=== PATIENT | female | born 1970 | race Hispanic/Latino ===

== ENCOUNTER 2018-12-27 00:58 | Emergency (ER) | payer SELFPAY ==
--- OUTSIDE RECORDS SUMMARY | 2018-12-27 01:01 | XMS REPORT | Continuity of Care Document ---
:1970 Author Organization Interface Problems Problem Status Onset Classification Date Comments Source Date Reported Mastodynia 01/30/2018 [facility] 8 [facility] N64.4 - Active [facility] MASTODYNIA 8 [employer] PAIN ABDOMINAL Active [facility] (LIVER) PAIN 2 Medical RIGHT SIDE AND Center RUNS TO THE Medications Medication Details Route Status Patient Ordering Order Source Instructions Provider Date Toradol 10 mg 10 mg, 1 tab, PO Active [facility] oral tablet PO, Q4H, PRN, Alexx 012 Medical 60 tab, Pain, Center Substitution Allowed, TAB ketorolac 15 mg, Route: IVP No [place] [facility] IVP, Drug Longer Alexx 012 Medical form: INJ, Active Center ONCE, Dosing Weight 78.182, kg, Priority: STAT, Start date: 07/29/12 15:08:00, Stop date: 07/29/12 15:08:00 hydromorphone 1 mg, 0.5 mL, IV No [facility] Route: IV, Longer Alexx 012 Medical Drug form: Active Center INJ, ONCE, Dosing Weight 78.182, kg, Start date: 07/29/12 14:29:00, Stop date: 07/29/12 14:29:00 Zofran 4 mg, 2 mL, IVP No [facility] Route: IVP, Longer Alexx 012 Medical Drug form: Active Center INJ, ONCE, Dosing Weight 78.182, kg, Priority: STAT, Start date: 07/29/12 14:28:00, Stop date: 07/29/12 14:28:00 omeprazole Substitution Active [address] Center Allergies, Adverse Reactions, Alerts Substance Category Reaction Severity Reaction Status Date Comments Source type Reported morphine drug Allergy Active [facility] allergy [facility] Immunizations Immunization Date Given Site Status Last Updated Comments Source Results Order Name Results Value Reference Date Interpretation Comments Source Range Breast Breast Mammo 12/18 - [facility] Mammo Scrn Scrn LUCY - [employer] LUCY w redd redd incl incl CAD MA CAD MA Read by: Nisha Topete MD Dictated Date/time: 12/19/18 14:25 BILATERAL DIGITAL SCREENING MAMMOGRAM 3D/2D WITH CAD: 12/18/2018 Electronically Signed by: Nisha Topete MD 12/19/18 14 :25 FINAL REPORT CLINICAL: /Z12.31 Encounter For Screening Mammogram For Malignant Neoplasm Of Breast. Current study was evaluated with a Computer Aided Detection (CAD) system. COMPARISON:Comparison is made to exams dated: 10/24/2017 mammogram and 02/04 mammogram - [facility]. TECHNIQUE: Digital Breast Tomosynthesis was performed and utilized for Interpretation. Current study was also evaluated with a Computer Aided Detection (CAD) system. FINDINGS: The tissue of both breasts is heterogeneously dense, which could obscure detection of small masses. Bilateral subglandular breast implants are stable and intact. There are benign calcifications in both breasts. There also is a biopsy clip in the right breast. No significant masses, calcifications, or other findings are seen in either breast. There has been no significant interval change. IMPRESSION: BENIGN RECOMMENDATION: There is no mammographic evidence of malignancy. A 1 year screening mammogram is recommended.(12/19/2019) This exam was interpreted at [id number] for [facility]. Nisha Topete M.D. dh/:12/19/2018 14:25:42 Dialer(s): Anayeli Jeffers, [facility] Imaging letter sent: BI-RADS 1/2 Dense Mammogram BI-RADS: 2 Benign Breast Breast 10/24 - [facility] Complete Complete - [employer] Lucy US US Read by: Casimiro Dean MD Dictated Date/time: 10/24/17 14:58 Electronically Signed by: Casimiro Dean MD 10/24/17 14:58 FINAL REPORT COMPLETE ULTRASOUND OF BOTH BREASTS AND AXILLA: 10/24/2017 CLINICAL: /Breast Pain /N64.4 Mastodynia. COMPARISON:Comparison is made to exams dated: 02/04/2014 mammogram and 06/25 mammogram - [facility]. TECHNIQUE: Current study was also evaluated with a Computer Aided Detection (CAD) system. Color flow and real-time ultrasound of both breasts four quadrants, retroareolar, and axilla regions were performed. FINDINGS: No significant abnormalities were seen sonographically in either breast or either axilla. There are mild fibrocystic changes noted in each breast. There is no solid mass. IMPRESSION: NEGATIVE RECOMMENDATION:There is no sonographic evidence of malignancy and no significant interval change. A 1 year screening mammogram is recommended.(10/25/2018) This exam was interpreted at [id number] for [facility]. Casimiro Dean M.D. bf/:10/24/2017 14:58:32 Dialer(s): Cass Noel R.D.M.S, [facility]; Trish Ortiz, [facility] Imaging letter sent: BI-RADS 1/2 Ultrasound BI-RADS: 1 Negative Breast Breast Mammo 10/24 - [facility] Mammo Diag Diag LUCY /2017 - [place] LUCY incl incl CAD MA CAD MA Read by: Casimiro Dean MD Dictated Date/time: 10/24/17 14:58 Electronically Signed by: Casimiro Dean MD 10/24/17 14:58 FINAL REPORT BILATERAL DIGITAL DIAGNOSTIC MAMMOGRAM WITH CAD: 10/24/2017 CLINICAL: /Breast Pain /N64.4 Mastodynia. Current study was evaluated with a Computer Aided Detection (CAD) system. COMPARISON:Comparison is made to exams dated: 02/04/2014 mammogram and 06/25 mammogram - [facility]. TECHNIQUE: Mammographic views were obtained using digital acquisition. Current study was also evaluated with a Computer Aided Detection (CAD) system. FINDINGS: The tissue of both breasts is heterogeneously dense, which could obscure detection of small masses. Bilateral implants appear stable. There are benign calcifications in both breasts. There also is a biopsy clip in both breasts. No significant masses, calcifications, or other findings are seen in either breast. IMPRESSION: BENIGN RECOMMENDATION:There is no mammographic evidence of malignancy. A 1 year screening mammogram is recommended.(10/25/2018) This exam was interpreted at [id number] for [facility]. Casimiro Dean M.D. bf/:10/24/2017 14:58:32 Dialer(s): Cass Noel R.D.M.S, [facility]; Trish Ortiz, [facility] Imaging letter sent: BI-RADS 1/2 Mammogram BI-RADS: 2 Benign CHEMISTRY AGAP 11.0 meq/L 10.0 - 10 Normal [facility] 20.0 [facility] CHEMISTRY eGFR 70 07/29 NA 1Result Comment: The eGFR is calculated using the CKD-EPI formula. In most young, healthy individuals the eGFR will be > 90 mL/min/1.73m2. The eGFR declines with age. An eGFR of 60-89 may be normal in [facility] mL/min/1.7 some populations, particularly the elderly, for whom the CKD-EPI formula has not been extensively validated. Use of the eGFR is not recommended in the following populations: [place] [address] Center Individuals with unstable creatinine concentrations, including patients and those with serious co-morbid conditions. Patients with extremes in muscle mass or diet. The data above are obtained from the National Kidney Disease Education Program (NKDEP) which additionally recommends that when the eGFR is used in patients with extremes of body mass index for purposes of drug dosing, the eGFR should be multiplied by the estimated BMI. CHEMISTRY Potassium 4.0 meq/L 3.5 - 5.1 07/29 Normal [facility] CHEMISTRY Chloride Lvl 106 meq/L 95 - 109 07/29 Normal [facility] CHEMISTRY CO2 30 meq/L 24 - 32 07/29 Normal [facility] CHEMISTRY Calcium Lvl 9.7 mg/dL 8.5 - 10.5 07/29 Normal [facility] CHEMISTRY Glucose Lvl 81 mg/dL 70 - 99 07/29 Normal 2Interpretive Data: Adult reference range values reflect the clinical guidelines of the [place] [employer]. [facility] CHEMISTRY BUN 8 mg/dL 7 - 22 07/29 Normal [facility] CHEMISTRY Creatinine 1.0 mg/dL 0.5 - 1.4 07/29 Normal [facility] CHEMISTRY Sodium Lvl 143 meq/L 135 - 145 07/29 Normal [facility] CHEMISTRY AST 23 unit/L 0 - 37 07/29 Normal [facility] CHEMISTRY Bili Direct 0.1 mg/dL 0.0 - 0.3 07/29 Normal [facility] CHEMISTRY Bili Total 0.4 mg/dL 0.2 - 1.3 07/29 Normal [facility] CHEMISTRY ALT 52 unit/L 0 - 65 07/29 Normal [facility] CHEMISTRY Albumin Lvl 4.3 g/dL 3.5 - 5.0 07/29 Normal [facility] Center CHEMISTRY Total 8.2 g/dL 6.4 - 8.4 07/29 Normal [facility] CHEMISTRY Alk Phos 98 unit/L 39 - 136 07/29 Normal [facility] CHEMISTRY A/G Ratio 1.1 0.7 - 1.6 07/29 Normal [facility] CHEMISTRY Bili 0.3 mg/dL 0.0 - 1.0 07/29 Normal [facility] CHEMISTRY Globulin 3.9 g/dL 2.0 - 4.0 07/29 Normal [facility] CHEMISTRY Lipase Lvl 140 unit/L 73 - 393 07/29 Normal [facility] HEMATOLOGY RDW 13.2 % 11.5 - 07/29 Normal [facility] 14.5 [facility] HEMATOLOGY Platelet 263 K/CMM 133 - 450 07/29 Normal [facility] HEMATOLOGY MPV 9.0 fL 7.4 - 10.4 07/29 Normal [facility] HEMATOLOGY MCH 30.1 pg 27.0 - 07/29 [facility] 31.0 Medical [facility] HEMATOLOGY MCHC 34.1 g/dL 32.0 - 07/29 Normal [facility] 36.0 Medical [facility] HEMATOLOGY MCV 88.2 fL 81.0 - 07/29 Normal [facility] 99.0 Medical [facility] HEMATOLOGY RBC 4.56 M/CMM 4.20 - 07/29 Normal [facility] 5.40 Medical [facility] HEMATOLOGY Hgb 13.7 g/dL 12.0 - 07/29 Normal [facility] 16.0 Medical Center HEMATOLOGY Hct 40.2 % 36.0 - 07/29 Normal [facility] 48.0 Medical Center HEMATOLOGY WBC 8.1 K/CMM 3.7 - 10.4 07/29 Normal [facility] HEMATOLOGY Anisocyte 1+ None Seen 07/29 ABN Medical *ABN* [facility] (07/29/2012 14:43:00) HEMATOLOGY Plt Morph Normal 07/29 Normal [facility] (07/29/2012 14:43:00) Center HEMATOLOGY Basophils # 0.1 K/CMM 0.0 - 0.2 07/29 Normal [facility] HEMATOLOGY Segs-Bands # 4.1 K/CMM 1.5 - 8.1 07/29 Normal [facility] HEMATOLOGY Eosinophils 0.1 K/CMM 0.0 - 0.5 07/29 Normal [facility] HEMATOLOGY Monocytes # 0.7 K/CMM 0.0 - 0.8 07/29 Normal [facility] HEMATOLOGY Lymphocytes 3.1 K/CMM 1.0 - 5.5 07/29 Normal [facility] HEMATOLOGY Basophils 0.8 % 0.0 - 1.0 07/29 Normal [facility] HEMATOLOGY Monocytes 8.1 % 2.0 - 12.0 07/29 Normal [facility] HEMATOLOGY Eosinophils 1.5 % 0.0 - 4.0 07/29 Normal [facility] HEMATOLOGY Lymphocytes 38.7 % 20.0 - 07/29 Normal [facility] 40.0 [facility] HEMATOLOGY Segs 50.9 % 45.0 - 07/29 Normal [facility] 75.0 [facility] CHEMISTRY U Preg Negative Negative 07/29 Normal [facility] (07/29/2012 14:29:00) Center URINALYSIS UA Bili Negative Negative 07/29 NA [facility] *NA* [facility] (07/29/2012 14:29:00) URINALYSIS UA Blood Negative Negative 07/29 Normal [facility] (07/29/2012 14:29:00) Center URINALYSIS UA Nitrite Negative Negative 07/29 Normal [facility] (07/29/2012 14:29:00) Center URINALYSIS UA 0.2 EU/dL 0.1 - 1.0 07/29 Normal [facility] Urobilinogen [facility] URINALYSIS UA Leuk Est Negative Negative 07/29 Normal Medical (07/29/2012 14:29:00) Center URINALYSIS UA Spec Grav 1.015 <=1.030 07/29 Normal [facility] URINALYSIS UA pH 7.0 5.0 - 8.0 07/29 Normal [facility] URINALYSIS UA Color Yellow Yellow 07/29 NA Medical *NA* Center (07/29/2012 14:29:00) URINALYSIS UA Turbidity Clear Clear 07/29 Normal Medical (07/29/2012 14:29:00) Center URINALYSIS UA Ketones Negative Negative 07/29 NA Medical *NA* [facility] (07/29/2012 14:29:00) URINALYSIS UA Protein Negative Negative 07/29 Normal Medical (07/29/2012 14:29:00) Center URINALYSIS UA Glucose Negative Negative 07/29 Normal Medical (07/29/2012 14:29:00) Center URINALYSIS UA Renal Epi RARE 07/29 NA [facility] URINALYSIS UA Mucus Few /LPF None Seen 07/29 Normal Medical (07/29/2012 14:29:00) Center URINALYSIS UA WBC 3 /HPF 0 - 5 07/29 NA [facility] URINALYSIS UA Sq Epi Few /LPF Few 07/29 Normal Medical (07/29/2012 14:29:00) Center URINALYSIS UA RBC 0-2 /HPF 0 - 2 07/29 Normal Medical (07/29/2012 14:29:00) Center URINALYSIS UA Bacteria Occasional /HPF None Seen 07/29 Normal Medical (07/29/2012 14:29:00) Center Vital Signs Vital Sign Value Date Comments Source Weight 78.182 07/29/2012 [facility] Height 165.10 cm 07/29/2012 [facility] Encounters Location Location Encounter Encounter Reason Attending ADM DC Status Source Details Type Number For Provider Date Date Visit [facility] Emergency [id number] CEE ANGELITA 07/29 07/29 Active [facility] /2011 [facility] Outpt Diag [id number] Joan 10/24 10/25 [facility] Outpatient Services Bharat /2017 [facility] Outpt Diag [id number] Tootie 12/18 12/19 [facility] Outpatient Services [facility] Procedures Procedure Code Date Perfomer Comments Source
--- OUTSIDE RECORDS SUMMARY | 2018-12-27 01:02 | XMS REPORT | Summary of Care ---
:1970 Author Organization [facility] Outpatient [facility] Address [address] [place] [address]- Encounter HQ Encntr_daniela(FIN) [id number] Date(s): 12/18/18 - 12/18/18 [facility] Outpatient [facility] [address] [facility] [address] [place] [phone] Discharge Disposition: Home or Self Care Attending Physician: Tootie Blandon MD Referring Physician: Tootie Blandon MD Vital Signs No data available for this section Problem List No data available for this section Allergies, Adverse Reactions, Alerts Substance Reaction Severity Status morphine Active Medications No data available for this section Results No data available for this section Immunizations No data available for this section Procedures No data available for this section Social History Social History Type Response Assessment and Plan No data available for this section
--- OUTSIDE RECORDS SUMMARY | 2018-12-27 01:02 | XMS REPORT | CCD ---
:1970 Author Organization [facility] Care Team Providers Name Role Phone MaikelCeleste smyth Consulting Provider Allergies, Adverse Reactions, Alerts Substance Reaction Status morphine Active Medications Medication Instructions Start Date End Date Status hydromorphone 1 mg, 0.5 mL, Route: IV, 07/29/2012 07/29/2012 Completed Drug form: INJ, ONCE, Dosing Weight 78.182, kg, Start date: 07/29/12 14:29:00, Stop date: 07/29/12 14:29:00 Zofran 4 mg, 2 mL, Route: IVP, 07/29/2012 07/29/2012 Completed Drug form: INJ, ONCE, Dosing Weight 78.182, kg, Priority: STAT, Start date: 07/29/12 14:28:00, Stop date: 07/29/12 14:28:00 Toradol 10 mg oral tablet 10 mg, 1 tab, PO, Q4H, PRN, 07/29/2012 Ordered 60 tab, Pain, Substitution Allowed, TAB ketorolac 15 mg, Route: IVP, Drug 07/29/2012 07/29/2012 Completed form: INJ, ONCE, Dosing Weight 78.182, kg, Priority: STAT, Start date: 07/29/12 15:08:00, Stop date: 07/29/12 15:08:00 omeprazole Substitution Allowed 07/29/2012 Ordered Vital Signs Most recent to oldest [Reference Range]: 1 Height 165.10 cm (07/29/2012 10:15:00) Weight 78.182 kg (07/29/2012 10:15:00) Results URINALYSIS Most recent to oldest [Reference Range]: 1 UA Turbidity [Clear] Clear (07/29/2012 14:29:00) UA Color [Yellow] Yellow *NA* (07/29/2012 14:29:00) UA pH [5.0-8.0] 7.0 (07/29/2012:29:00) UA Spec Grav [<=1.030] 1.015 (07/29/2012:29:00) UA Glucose [Negative] Negative (07/29/2012:29:) UA Blood [Negative] Negative (07/29/2012:29:00) UA Ketones [Negative] Negative *NA* (07/29/2012:29:00) UA Protein [Negative] Negative (07/29/2012::) UA Urobilinogen [0.1-1.0 EU/dL] 0.2 EU/dL (07/29/2012:29:00) UA Bili [Negative] Negative *NA* (07/29/2012::) UA Leuk Est [Negative] Negative (07/29/2012:29:) UA Nitrite [Negative] Negative (07/29/2012:29:00) UA WBC [0-5 /HPF] 3 /HPF *NA* (07/29/2012:29:00) UA RBC [0-2 /HPF] 0-2 /HPF (07/29/2012:29:00) UA Bacteria [None Seen /HPF] Occasional /HPF (07/29/2012:29:00) UA Sq Epi [Few /LPF] Few /LPF (07/29/2012:29:00) UA Renal Epi RARE *NA* (07/29/2012:29:00) UA Mucus [None Seen /LPF] Few /LPF (07/29/2012:29:00) CHEMISTRY Most recent to oldest [Reference Range]: 1 Sodium Lvl [135-145 mEq/L] 143 mEq/L (07/29/2012 14:43:00) Potassium Lvl [3.5-5.1 mEq/L] 4.0 mEq/L (07/29/2012:43:00) Chloride Lvl [95-109 mEq/L] 106 mEq/L (07/29/2012:43:00) CO2 [24-32 mEq/L] 30 mEq/L (07/29/2012:43:00) AGAP [10.0-20.0 mEq/L] 11.0 mEq/L (07/29/2012 14:43:00) Creatinine Lvl [0.5-1.4 mg/dL] 1.0 mg/dL (07/29/2012 14:43:00) eGFR 70 mL/min/1.73m2 1 *NA* (07/29/2012 14:43:00) BUN [7-22 mg/dL] 8 mg/dL (07/29/2012 14:43:00) Glucose Lvl [70-99 mg/dL] 81 mg/dL 2 (07/29/2012 14:43:00) Total Protein [6.4-8.4 g/dL] 8.2 g/dL (07/29/2012:43:00) Albumin Lvl [3.5-5.0 g/dL] 4.3 g/dL (07/29/2012:43:00) Globulin [2.0-4.0 g/dL] 3.9 g/dL (07/29/2012:43:00) A/G Ratio [0.7-1.6] 1.1 (07/29/2012:43:00) Calcium Lvl [8.5-10.5 mg/dL] 9.7 mg/dL (07/29/2012 14:43:00) ALT [0-65 unit/L] 52 unit/L (07/29/2012:43:00) AST [0-37 unit/L] 23 unit/L (07/29/2012 14:43:00) Alk Phos [39-136 unit/L] 98 unit/L (07/29/2012:43:00) Bili Total [0.2-1.3 mg/dL] 0.4 mg/dL (07/29/2012 14:43:00) Bili Direct [0.0-0.3 mg/dL] 0.1 mg/dL (07/29/2012 14:43:00) Bili Indirect [0.0-1.0 mg/dL] 0.3 mg/dL (07/29/2012 14:43:00) Lipase Lvl [73-393 unit/L] 140 unit/L (07/29/2012 14:43:00) U Preg [Negative] Negative (07/29/2012 14:29:00) 1Result Comment: The eGFR is calculated using the CKD-EPI formula. In most young , healthy individualsthe eGFR will be >90 mL/min/1.73m2. The eGFR declines with age. An eGFR of 60-89 may be normal in some populations, particularly the elderly, for whom the CKD-EPI formula has not been extensively validated. Use of the eGFR is not recommended in the following populations: Individuals with unstable creatinine concentrations, including patients and those with serious co-morbid conditions. Patients with extremes in muscle mass or diet. The data above are obtained from the National Kidney Disease Education Program ( NKDEP) which additionally recommends that when the eGFR is used in patients with extremes of body mass index for purposesof drug dosing, the eGFR should be multiplied by the estimated BMI.2Interpretive Data: Adult reference range values reflect the clinical guidelines of the [place] [employer].HEMATOLOGY Most recent to oldest [Reference Range]: 1 WBC [3.7-10.4 K/CMM] 8.1 K/CMM (07/29/2012:43:) RBC [4.20-5.40 M/CMM] 4.56 M/CMM (07/29/2012:43:) Hgb [12.0-16.0 g/dL] 13.7 g/dL (07/29/2012::) Hct [36.0-48.0 %] 40.2 % (07/29/2012:43:) MCV [81.0-99.0 fL] 88.2 fL (07/29/2012:43:) MCH [27.0-31.0 pg] 30.1 pg (07/29/2012:43:) MCHC [32.0-36.0 g/dL] 34.1 g/dL (07/29/2012:43:) RDW [11.5-14.5 %] 13.2 % (07/29/2012::) Platelet [133-450 K/CMM] 263 K/CMM (07/29/2012:43:00) MPV [7.4-10.4 fL] 9.0 fL (07/29/2012:43:) Segs [45.0-75.0 %] 50.9 % (07/29/2012 14:43:00) Lymphocytes [20.0-40.0 %] 38.7 % (07/29/2012 14:43:00) Monocytes [2.0-12.0 %] 8.1 % (07/29/2012 14:43:00) Eosinophils [0.0-4.0 %] 1.5 % (07/29/2012 14:43:00) Basophils [0.0-1.0 %] 0.8 % (07/29/2012 14:43:00) Segs-Bands # [1.5-8.1 K/CMM] 4.1 K/CMM (07/29/2012 14:43:00) Lymphocytes # [1.0-5.5 K/CMM] 3.1 K/CMM (07/29/2012 14:43:00) Monocytes # [0.0-0.8 K/CMM] 0.7 K/CMM (07/29/2012 14:43:00) Eosinophils # [0.0-0.5 K/CMM] 0.1 K/CMM (07/29/2012 14:43:00) Basophils # [0.0-0.2 K/CMM] 0.1 K/CMM (07/29/2012 14:43:00) Anisocyte [None Seen] 1+ *ABN* (07/29/2012 14:43:00) Plt Morph Normal (07/29/2012 14:43:00)
--- OUTSIDE RECORDS SUMMARY | 2018-12-27 01:02 | XMS REPORT | Summary of Care ---
:1970 Author Organization [facility] Outpatient [facility] Address [address] [place] [address]- Encounter HQ Encntr_alias(FIN) [id number] Date(s): 10/24/17 - 10/24/17 [facility] [address] [facility] [address] [place] [phone] Encounter Diagnosis Mastodynia (Final) - 10/29/17 Discharge Disposition: Home or Self Care Attending Physician: Joan Nicholson MD Vital Signs No data available for [...]
--- OUTSIDE RECORDS SUMMARY | 2018-12-27 01:02 | XMS REPORT | Summary of Care ---
:1970 Author Organization [facility] Outpatient [facility] Address [address] [facility] [address] [place] [address]- Encounter HQ Encntr_alias(FIN) [id number] Date(s): 10/24/17 - 10/24/17 [facility] [address] [facility] [address] [place], [place] [phone] Discharge Disposition: Home or Self Care Attending [...]
[2018-12-27 02:22] LABS: Absolute Lymphocytes (CBC) 3.8 K/uL (0.7-4.9); Absolute Monocytes 0.8 K/uL (0.1-1.3); Absolute Neutrophil 4.1 K/uL (1.8-8.0); Basophils % 0.4 % (0-1.3); Eosinophils % 3.3 % (0-4.4); Hematocrit 41.1 % (36.0-45.0); Lymphocytes % 41.9 % (15.3-44.8); MPV 9.7 fL (7.6-11.3); Monocytes % 9.1 % (3.3-12.3); RBC Red Blood Cell Count 4.53 M/uL (3.86-4.86)
--- NOTE | 2018-12-27 02:40 | EDPHYS ---
Physician Documentation [facility] Name: Kim Zimmerman Age: 48 yrs Sex: Female : 1970 Arrival Date: 12/27/2018 Time: 01:09 Bed 14 Private MD: ED Physician Joao Moseley HPI: 12/27 01:24 This 48 yrs old Female presents to ER via Ambulatory with complaints of High kb Potassium. 01:24 Pt reports she had chest, neck and arm pain on Sunday. Saw Dr Melo for symptoms on kb Sunday, had negative EKG and blood test done. 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 Onset: The symptoms/episode began/occurred 3 day(s) ago. The patient has not experienced similar symptoms in the past. The patient has been recently seen by a physician: the patient's primary care provider, Dr. Melo at a clinic, 2 day(s) ago. 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 - Social history:: Smoking status: Patient/guardian denies using tobacco, Patient uses alcohol, occasionally. Patient/guardian denies using street drugs. - Ebola Screening: : Patient negative for fever greater than or equal to 101.5 degrees Fahrenheit, and additional compatible Ebola Virus Disease symptoms Patient denies exposure to infectious person Patient denies travel to an Ebola-affected area in the 21 days before illness onset. ROS: 01:23 Constitutional: Negative for fever, chills, and weight loss, ENT: Negative for injury, kb pain, and discharge, Cardiovascular: Negative for chest pain, palpitations, and edema, Respiratory: Negative for shortness of breath, cough, wheezing, and pleuritic chest pain, Abdomen/GI: Negative for abdominal pain, nausea, vomiting, diarrhea, and constipation, MS/Extremity: Negative for injury and deformity, Skin: Negative for injury, rash, and discoloration, Neuro: Negative for headache, weakness, numbness, tingling, and seizure. :23 Neck: Positive for pain at rest. Exam: :23 Constitutional: This is a well developed, well nourished patient who is awake, alert, kb and in no acute distress. Head/Face: Normocephalic, atraumatic. ENT: Nares patent. No nasal discharge, no septal abnormalities noted. Tympanic membranes are normal and external auditory canals are clear. Oropharynx with no redness, swelling, or masses, exudates, or evidence of obstruction, uvula midline. Mucous membranes moist. Neck: Trachea midline, no thyromegaly or masses palpated, and no cervical lymphadenopathy. Supple, full range of motion without nuchal rigidity, or vertebral point tenderness. No Meningismus. Chest/axilla: Normal chest wall appearance and motion. Nontender with no deformity. No lesions are appreciated. Cardiovascular: Regular rate and rhythm with a normal S1 and S2. No gallops, murmurs, or rubs. Normal PMI, no JVD. No pulse deficits. Respiratory: Lungs have equal breath sounds bilaterally, clear to auscultation and percussion. No rales, rhonchi or wheezes noted. No increased work of breathing, no retractions or nasal flaring. Abdomen/GI: Soft, non-tender, with normal bowel sounds. No distension or tympany. No guarding or rebound. No evidence of tenderness throughout. Skin: Warm, dry with normal turgor. Normal color with no rashes, no lesions, and no evidence of cellulitis. MS/ Extremity: Pulses equal, no cyanosis. Neurovascular intact. Full, normal range of motion. Neuro: Awake and alert, GCS 15, oriented to person, place, time, and situation. Cranial nerves II-XII grossly intact. Motor strength 5/5 in all extremities. Sensory grossly intact. Cerebellar exam normal. Normal gait. Vital Signs: 01:05 BP 129 / 85; Pulse 60; Resp 18; Temp 98.3(O); Pulse Ox 98% on R/A; Weight 81.65 kg (R); fc Height 5 ft. 6 in. (167.64 cm) (R); Pain 2/10; 02:17 BP 106 / 80; Pulse 59; Resp 15 S; Pulse Ox 97% on R/A; cc3 01:05 Body Mass Index 29.05 (81.65 kg, 167.64 cm) fc MDM: 01:18 Patient medically screened. kb 01:23 Data reviewed: vital signs, nurses notes. Data interpreted: Pulse oximetry: on room air kb is 98 %. Interpretation: normal. 02:39 Counseling: I had a detailed discussion with the patient and/or guardian regarding: the kb historical points, exam findings, and any diagnostic results supporting the discharge/admit diagnosis, lab results, the need for outpatient follow up, a family practitioner, to return to the emergency department if symptoms worsen or persist or if there are any questions or concerns that arise at home. 02:40 ED course: Potassium 4.0, normal. Pt educated to follow up with PCP . kb 12/27 01:14 Order name: CBC with Diff; Complete Time: 02:36 kb 12/27 01:14 Order name: Basic Metabolic Panel; Complete Time: 02:36 kb 12/27 01:14 Order name: EKG; Complete Time: 01:15 kb 12/27 01:14 Order name: EKG - Nurse/Tech; Complete Time: 01:56 kb 12/27 01:15 Order name: IV Start; Complete Time: 01:56 kb Administered Medications: No medications were administered Disposition: 12/27/18 02:39 Discharged to Home. Impression: Person with feared health complaint in whom no diagnosis is made. - Condition is Stable. - Medication Reconciliation Form, Thank You Letter, Antibiotic Education, Prescription Opioid Use form. - Follow up: Emergency Department; When: As needed; Reason: Worsening of condition. Follow up: Private Physician; When: 2 - 3 days; Reason: Recheck today's complaints, Continuance of care, Re-evaluation by your physician. Addendum: 12/29/2018 19:39 Co-signature as Attending Physician, Joao Moseley MD. g s Signatures: Dispatcher [employer] EDKetty Durham FNP-C FNP-Ckb Chretien, Felicia, RN RN Joao Sorensen MD MD gs Cordel, Charlene cc3 Corrections: (The following items were deleted from the chart) 12/27 02:52 02:39 12/27/2018 02:39 Discharged to Home. Impression: Person with feared health cc3 complaint in whom no diagnosis is made. Condition is Stable. Forms are Medication Reconciliation Form, Thank You Letter, Antibiotic Education, Prescription Opioid Use. Follow up: Emergency Department; When: As needed; Reason: Worsening of condition. Follow up: Private Physician; When: 2 - 3 days; Reason: Recheck today's complaints, Continuance of care, Re-evaluation by your physician. kb
--- NOTE | 2018-12-27 02:40 | ER ---
Nurse's Notes [facility] Name: Kim Zimmerman Age: 48 yrs Sex: Female : 1970 Arrival Date: 12/27/2018 Time: 01:09 Bed 14 Private MD: Diagnosis: Person with feared health complaint in whom no diagnosis is made Presentation: 12/27 01:05 Presenting complaint: Patient states: that on Sunday she was having pain to her left fc chest, left neck and left arm along with some weakness. on she went to see Dr Melo and had some labs and an EKG done. He called her tonight to tell her that her Potassium was 7. She continues to have left neck pain. Transition of care: patient was not received from another setting of care. Onset of symptoms was December 22, 2018. Risk Assessment: Do you want to hurt yourself or someone else? Patient reports no desire to harm self or others. Initial Sepsis Screen: Does the patient meet any 2 criteria? No. Patient's initial sepsis screen is negative. Does the patient have a suspected source of infection? No. Patient's initial sepsis screen is negative. Care prior to arrival: None. 01:05 Method Of Arrival: Ambulatory 01:05 Acuity: EARLENE 3 Triage Assessment: 01:35 General: Appears in no apparent distress. comfortable, Behavior is calm, cooperative, cc3 appropriate for age. Pain: Denies pain. EENT: No signs and/or symptoms were reported regarding the EENT system. Neuro: Level of Consciousness is awake, alert, obeys commands, Oriented to person, place, time, situation, Appropriate for age. Cardiovascular: Patient's skin is warm and dry. Respiratory: Airway is patent Respiratory effort is even, unlabored, Respiratory pattern is regular, symmetrical. GI: Abdomen is round non-distended. : No signs and/or symptoms were reported regarding the genitourinary system. Derm: No signs and/or symptoms reported regarding the dermatologic system. Musculoskeletal: Circulation, motion, and sensation intact. Range of motion: intact in all extremities. 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 - Social history:: Smoking status: Patient/guardian denies using tobacco, Patient uses alcohol, occasionally. Patient/guardian denies using street drugs. - Ebola Screening: : Patient negative for fever greater than or equal to 101.5 degrees Fahrenheit, and additional compatible Ebola Virus Disease symptoms Patient denies exposure to infectious person Patient denies travel to an Ebola-affected area in the 21 days before illness onset. Screenin:10 Abuse screen: Denies threats or abuse. Nutritional screening: No deficits noted. Tuberculosis screening: No symptoms or risk factors identified. Fall Risk None identified. Assessment: 01:35 General: see triage assessment. cc3 02:45 Reassessment: Patient appears in no apparent distress at this time. Patient and/or cc3 family updated on plan of care and expected duration. Pain level reassessed. Patient is alert, oriented x 3, equal unlabored respirations, skin warm/dry/pink. WARNER Claudio discharged the patient home, no prescription given. IV cannula removed and patient left ER vitally stable and ambulatory. Patient denies pain at this time. Patient states feeling better. Vital Signs: 01:05 BP 129 / 85; Pulse 60; Resp 18; Temp 98.3(O); Pulse Ox 98% on R/A; Weight 81.65 kg (R); Height 5 ft. 6 in. (167.64 cm) (R); Pain 2/10; 02:17 BP 106 / 80; Pulse 59; Resp 15 S; Pulse Ox 97% on R/A; cc3 01:05 Body Mass Index 29.05 (81.65 kg, 167.64 cm) ED Course: 01:05 Arm band placed on Patient placed in an exam room, on a stretcher. fc 01:09 Patient arrived in ED. fc 01:10 Ketty Claudio FNP-C is [facility]. kb 01:10 oJao Moseley MD is Attending Physician. kb 01:10 Patient has correct armband on for positive identification. Bed in low position. Call light in reach. seamark advanced operator maintainer on. Pulse ox on. NIBP on. 01:10 No provider procedures requiring assistance completed. fc 01:22 Triage completed. fc 01:34 Corry Dee is Primary Nurse. cc3 01:50 Inserted saline lock: 20 gauge in left antecubital area, using aseptic technique. Blood cc3 collected. 02:45 IV discontinued, intact, bleeding controlled, No redness/swelling at site. Pressure cc3 dressing applied. Administered Medications: No medications were administered Outcome: 02:39 Discharge ordered by . kb 02:45 Discharged to home ambulatory. cc3 02:45 Condition: stable 02:45 Discharge instructions given to patient, Instructed on discharge instructions, follow up and referral plans. Demonstrated understanding of instructions, follow-up care. 02:52 Patient left the ED. cc3 Signatures: Ketty Claudio FNP-C FNP-Rosita Khan, RN RN Corry Dee cc3
[2018-12-27 03:11] VITALS: TEMP 98.3
[2018-12-27 03:13] VITALS: BP 106/80; O2SAT 97
--- NOTE | 2018-12-27 05:29 | EKG ---
Test Date: 2018-12-27 Test Time: 01:40:38 Manager Lighting: AMEYA MEASUREMENT RESULTS: Intervals: Rate: 55 [place]: 126 QRSD: 80 QT: 414 QTc: 396 [place]: P: 17 [place]: 126 QRS: 9 T: 36 INTERPRETIVE STATEMENTS: Sinus bradycardia Otherwise normal ECG Compared to ECG 02/06/2014 21:13:16 Sinus rhythm no longer present Left ventricular hypertrophy no longer present Electronically Signed On 12-27-18 05:29:09 CDT by Paco Pitts
== END 2018-12-27 02:52 | disposition home or self-care (01) ==
LOC: ER 00:58
DX: Z71.1 Person with feared health complaint in whom no diagnosis is made (principal); R07.9 Chest pain, unspecified; M54.2 Cervicalgia; E78.00 Pure hypercholesterolemia, unspecified; R73.03 Prediabetes
CPT/HCPCS: 36415; 80048; 85025; 93005; 99284

== ENCOUNTER 2020-04-09 20:46 | Emergency (ER) | payer SELFPAY ==
--- OUTSIDE RECORDS SUMMARY | 2020-04-09 20:49 | XMS REPORT | Continuity of Care Document ---
:1970 Author Organization [facility] [employer] Care Team Providers Name Role Phone [facility] [employer] Unavailable Un available Problems Problem Status Onset Classification Date Comments Sourc e Date Reported Z12.31 - Active [facility] ENCNTR SCREEN 9 Tre n MAMMOGRAM FOR [place] Mastodynia 01/30/2018 [facility] 8 [facility] N64.4 - Active [facility] MASTODYNIA 8 [place] ABDOM[place]AL [place] (LIVER[place] PAIN 2 Medical RIGHT SIDE AND Cente r RUNS TO THE Medications Medication Details Route Status Patient Ordering Order Source Instructions Provider Date Toradol 10 mg 10 mg, 1 tab, PO Active [place] oral tablet PO, Q4H, PRN, Alexx 012 Medica l 60 tab, Pain, Center Substitution Allowed, TAB ketorolac 15 mg, Route: IVP No [place] [facility] IVP, Drug Longer Alexx 012 Medical form: INJ, Active Center ONCE, Dosing Weight 78.182, kg, Priority: STAT, Start date: 07/29/12 15:08:00, Stop date: 07/29/12 15:08:00 hydromorphone 1 mg, 0.5 mL, IV No [place] Route: IV, Longer Alexx 012 Medical Drug form: Active Center INJ, ONCE, Dosing Weight 78.182, kg, Start date: 07/29/12 14:29:00, Stop date: 07/29/12 14:29:00 Zofran 4 mg, 2 mL, IVP No [place] [facility] Route: IVP, Longer Alexx 012 Medical Drug form: Active Center INJ, ONCE, Dosing Weight 78.182, kg, Priority: STAT, Start date: 07/29/12 14:28:00, Stop date: 07/29/12 14:28:00 omeprazole Substitution Active [address] Allergies, Adverse Reactions, Alerts Substance Category Reaction Severity Reaction Status Date Comments S ource type Reported morphine Assertion Drug Active [facility] allergy [facility] Immunizations No Data Provided for This Section Results Order Name Results Value Reference Date Interpretation Comments Breann rce Range CHEMISTRY AGAP 11.0 10.0 - 07/29 Normal [facility] 20.0 [facility] CHEMISTRY eGFR 70 07/29 NA <sup>1</sup>R esult Medical Comment: The Center eGFR is calculated using the CKD-EPI formula. In most young, healthy individuals the eGFR will be >90 mL/min/1.73m2 . The eGFR declines with age. An eGFR of 60-89 may be normal in some populations, particularly the elderly, for whom the CKD-EPI formula has not been extensively validated. Use of the eGFR is not recommended in the following populations:& lt;br/>
I ndividuals with unstable creatinine concentration s, including patients and those with serious co-morbid conditions.<b r/>
Patie nts with extremes in muscle mass or diet.

The data above are obtained from the National Kidney Disease Education Program (NKDEP) which additionally recommends that when the eGFR is used in patients with extremes of body mass index for purposes of drug dosing, the eGFR should be multiplied by the estimated BMI. CHEMISTRY Potassium Lvl 4.0 3.5 - 5.1 07/29 Normal [facility] CHEMISTRY Chloride Lvl 106 95 - 109 07/29 Normal [facility] CHEMISTRY CO2 30 24 - 32 07/29 Normal [facility] CHEMISTRY Calcium Lvl 9.7 8.5 - 10.5 07/29 [facility] CHEMISTRY Glucose Lvl 81 70 - 99 07/29 Normal <sup>2</sup>I T ex nterpretive Medical Data: Adult Center reference range values reflect the clinical guidelines
of the [place] [employer]. CHEMISTRY BUN 8 7 - 22 07/29 Normal [facility] CHEMISTRY Creatinine 1.0 0.5 - 1.4 07/29 Normal [facility] Lvl [facility] CHEMISTRY Sodium Lvl 143 135 - 145 07/29 Normal [facility] CHEMISTRY AST 23 0 - 37 07/29 Normal [facility] CHEMISTRY Bili Direct 0.1 0.0 - 0.3 07/29 Normal [facility] CHEMISTRY Bili Total 0.4 0.2 - 1.3 07/29 Normal [facility] CHEMISTRY ALT 52 0 - 65 07/29 Normal [facility] CHEMISTRY Albumin Lvl 4.3 3.5 - 5.0 07/29 Normal [facility] CHEMISTRY Total Protein 8.2 6.4 - 8.4 07/29 Normal [facility] CHEMISTRY Alk Phos 98 39 - 136 07/29 Normal [facility] CHEMISTRY A/G Ratio 1.1 0.7 - 1.6 07/29 Normal [facility] CHEMISTRY Bili Indirect 0.3 0.0 - 1.0 07/29 Normal [facility] CHEMISTRY Globulin 3.9 2.0 - 4.0 07/29 Normal [facility] CHEMISTRY Lipase Lvl 140 73 - 393 07/29 Normal [facility] HEMATOLOGY RDW 13.2 11.5 - 07/29 Normal [place] 14.5 [facility] HEMATOLOGY Platelet 263 133 - 450 07/29 Normal [facility] HEMATOLOGY MPV 9.0 7.4 - 10.4 07/29 Normal [facility] HEMATOLOGY MCH 30.1 27.0 - 07/29 Normal [place] 31.0 /2011 [facility] Center HEMATOLOGY MCHC 34.1 32.0 - 07/29 Normal [place] 36.0 [facility] HEMATOLOGY MCV 88.2 81.0 - 07/29 Normal [place] 99.0 Medical Center HEMATOLOGY RBC 4.56 4.20 - 07/29 Normal [place] 5.40 /2011 Medical Center HEMATOLOGY Hgb 13.7 12.0 - 07/29 Normal [place] 16.0 Medical Center HEMATOLOGY Hct 40.2 36.0 - 07/29 Normal [place] 48.0 Medical Center HEMATOLOGY WBC 8.1 3.7 - 10.4 07/29 Normal [facility] HEMATOLOGY Anisocyte 1+ None Seen 07/29 ABN [place] *ABN* /2011 Medical (07/29/2012 14:43:00) Ce nter HEMATOLOGY Plt Morph Normal 07/29 Normal [facility] (07/29/2012 14:43:00) /2011 Me dical Center HEMATOLOGY Basophils # 0.1 0.0 - 0.2 07/29 Normal [facility] HEMATOLOGY Segs-Bands # 4.1 1.5 - 8.1 07/29 Normal [facility] HEMATOLOGY Eosinophils # 0.1 0.0 - 0.5 07/29 Normal Te [facility] HEMATOLOGY Monocytes # 0.7 0.0 - 0.8 07/29 Normal [facility] HEMATOLOGY Lymphocytes # 3.1 1.0 - 5.5 07/29 Normal Te [facility] HEMATOLOGY Basophils 0.8 0.0 - 1.0 07/29 Normal [facility] HEMATOLOGY Monocytes 8.1 2.0 - 12.0 07/29 Normal [facility] HEMATOLOGY Eosinophils 1.5 0.0 - 4.0 07/29 Normal [facility] HEMATOLOGY Lymphocytes 38.7 20.0 - 07/29 Normal [place] 40.0 [facility] HEMATOLOGY Segs 50.9 45.0 - 07/29 Normal [place] 75.0 Medical Center CHEMISTRY U Preg Negative Negative 07/29 Normal [facility] (07/29/2012 14:29:00) Oh dical Center URINALYSIS UA Bili Negative Negative 07/29 NA (07/29/2012 14:29:00) Ce nter URINALYSIS UA Blood Negative Negative 07/29 Normal [facility] (07/29/2012 14:29:00) Oh dical Center URINALYSIS UA Nitrite Negative Negative 07/29 Normal [facility] (07/29/2012 14:29:00) Oh dical Center URINALYSIS UA 0.2 0.1 - 1.0 07/29 Normal [facility] Urobilinogen [facility] URINALYSIS UA Leuk Est Negative Negative 07/29 Normal (07/29/2012 14:29:00) Oh dical Center URINALYSIS UA Spec Grav 1.015 <=1.030 07/29 Normal [facility] URINALYSIS UA pH 7.0 5.0 - 8.0 07/29 Normal [facility] URINALYSIS UA Color Yellow Yellow 07/29 NA [place] *NA* Medical (07/29/2012 14:29:00) Ce nter URINALYSIS UA Turbidity Clear Clear 07/29 Normal [facility] (07/29/2012 14:29:00) Oh dical Center URINALYSIS UA Ketones Negative Negative 07/29 NA [facility] *NA* Medical (07/29/2012 14:29:00) Ce nter URINALYSIS UA Protein Negative Negative 07/29 Normal [facility] (07/29/2012 14:29:00) Oh dical Center URINALYSIS UA Glucose Negative Negative 07/29 Normal [facility] (07/29/2012 14:29:00) Oh dical Center URINALYSIS UA Renal Epi RARE 07/29 NA Medical Center URINALYSIS UA Mucus Few /LPF None Seen 07/29 Normal [facility] (07/29/2012 14:29:00) Oh dical Center URINALYSIS UA WBC 3 0 - 5 07/29 NA [facility] URINALYSIS UA Sq Epi Few /LPF Few 07/29 Normal [facility] (07/29/2012 14:29:00) Oh dical Center URINALYSIS UA RBC 0-2 /HPF 0 - 2 07/29 Normal [facility] (07/29/2012 14:29:00) Oh dical Center URINALYSIS UA Bacteria Occasional /HPF None Seen 07/29 Normal [facility] (07/29/2012 14:29:00) Oh dicid Center Pathology Reports No Data Provided for This Section Diagnostic Reports Report Value Date Source Breast Mammo Scrn JORDAN 12/18/2018 [facility] w redd incl CAD MA BILATERAL DIGITAL SCREENING MAMMOGRAM 3D/2D WITH CAD: 12/18/2018 CLINICAL: /Z12.31 Encounter For Screening Mammogram For Malignant Neoplasm Of Breast. Current study was evaluated with a Cellular Biologist d Detection (CAD) system. COMPARISON:Comparison is [facility] e to exams dated: 10/24/2017 mammogram and 02/04/2014 mammogram - [facility]. TECHNIQUE: Digital Breast To mosynthesis was performed and utilized for Interpretation. Current study was also evaluated with a Computer Aided Detection (CAD) system. FINDINGS: The tissue of both breasts i s heterogeneously dense, which could obscure detection of small masses. Bilateral subglandular breas t implants are stable and intact. There are benign calcifications in both breasts. There also is a biopsy clip in the right breast. No significant masses, calci fications, or other findings are seen in either breast. There has been no significant interval change. IMPRESSION: BENIGN RECOMMENDATION: There is no mammographic zabrina dence of malignancy. A 1 year screening mammogram is recommended.(12/19/2019) [id number] Nisha Topete M.D. dh/:12/19/2018 14:25:42 [employer] Operator(s): Veronica Jeffers, [facility] letter sent: BI-RADS 1/2 Dense Mammogram BI-RADS: 2 Benign Breast Complete [place] 10/24/2017 [facility] US COMPLETE ULTRASOUND OF BOTH BREASTS AND AXILLA: 10/24/2017 CLINICAL: /Breast Pain /N64.4 Mastodynia. COMPARISON:Comparison is mad e to exams dated: 02/04/2014 mammogram and 06/25/2013 mammogram - [facility]. TECHNIQUE: Current study was also evaluated with a Computer Aided Detection (CAD) system. Color flow and real-time ultrasound of both breasts four quadrants, retroareolar, and axilla regions were performed. FINDINGS: No significant abnormalities were seen sonographically in either breast or either axilla. There are mild fibrocystic changes noted in each breast. There is no solid mass. IMPRESSION: NEGATIVE RECOMMENDATION:There is no s onographic evidence of malignancy and no significant interval change. A 1 year screening mammogram is recommended.(10/25/2018) This exam was interpreted at [id number] for [facility]. Casimiro Dean M.D. bf/:10/24/2017 14:58:32 [employer] Operator(s): Austin Noel R.D.M.S, [facility]; Trish Ortiz, [facility] letter sent: BI-RADS 1/2 Ultrasound BI-RADS: 1 Negative Breast Mammo Diag JORDAN 10/24/2017 [facility] incl CAD MA BILATERAL DIGITAL DIAGNOSTIC MAMMOGRAM WITH CAD: 10/24/2017 CLINICAL: /Breast Pain /N64.4 Mastodynia. Current study was evaluated with a Cellular Biologist d Detection (CAD) system. COMPARISON:Comparison is mad e to exams dated: 02/04/2014 mammogram and 06/25/2013 mammogram - [facility]. TECHNIQUE: Mammographic view s were obtained using digital acquisition. Current study was also evaluated with a Computer Aided Detection (CAD) system. FINDINGS: The tissue of both breasts i s heterogeneously dense, which could obscure detection of small masses. Bilateral implants appear stable. There are benign calcificati ons in both breasts. There also is a biopsy clip in both breasts. No significant masses, calci fications, or other findings are seen in either breast. IMPRESSION: BENIGN RECOMMENDATION:There is no m ammographic evidence of malignancy. A 1 year screening mammogram is recommended.(10/25/2018) This exam was interpreted at [id number] for [facility]. Casimiro Dean M.D. bf/:10/24/2017 14:58:32 [employer] Operator(s): Austin Noel R.D.MKarlS, [facility]; Trish Ortiz, [facility] letter sent: BI-RADS 1/2 Mammogram BI-RADS: 2 Benign Consultation Notes No Data Provided for This Section Discharge Summaries No Data Provided for This Section History and Physicals No Data Provided for This Section Vital Signs Vital Sign Value Date Comments Source Weight 78.182 07/29/2012 [facility] Height 165.10 cm 07/29/2012 [facility] Encounters Location Location Encounter Encounter Reason Attending ADM [place] Stat us Source Details Type Number For Provider Date Date Visit [facility] Emergency [id number] CEE ANGELITA 07/29 07/29 Dis charg [facility] Outpt Diag [id number] Joan 10/24 10/25 M [facility] Outpatient Services 0 Bharat /2017 [facility] Outpt Diag [id number] [place] 10/28 10/28 [facility] Outpatient Services 1 [facility] Outpt Diag [id number] Joan 11/11 11/11 [facility] Outpatient Services 2 [facility] Outpt Diag [id number] [place] 12/18 12/19 [facility] Outpatient Services 3 Vi ctory Imaging - [facility] Procedures No Data Provided for This Section Assessment and Plan No Data Provided for This Section Plan of Care No Data Provided for This Section Social History Social History Date Source Social History TypeResponse 11/11/2018 [facility] Family History No Data Provided for This Section Advance Directives No Data Provided for This Section Functional Status No Data Provided for This Section
--- OUTSIDE RECORDS SUMMARY | 2020-04-09 20:51 | XMS REPORT | Continuity of Care Document ---
:1970 Author Organization [facility] t Address [address] [place] [address] Care Team Providers Name Role Phone Jamia Tootie Aggarwal Attending Clinician Nhan Nicholson Attending Clinician Payers Payer Name Policy Type Policy Number Effective Date Expiration Date S ource Problems Condition Condition Condition Status Onset Resolution Last Treating Co mments Source Name Details Category Date Date Treatment Clinician Date Z.31 - Diagnosis Active 2019-01-22 M emoria ENCNTR 3-05 19:58:00 l SCREEN Z12.31 - 00:01: Tre n MAMMOGRAM ENCNTR 00 FOR MA SCREEN MAMMOGRAM FOR MA Active [facility] N[facility].4 - Diagnosis Active 2017-10-24 Me moria MASTODYNIA 1-09 13:20:00 l N64.4 - 00:01: Charlie MASTODYNIA 00 Active 10/23/2017 [facility] PAIN Diagnosis Active 2011-102012-07-29 Mem oria ABDOMINAL 0-15 14:26:00 l (LIVER) PAIN 00:00: Charlie PAIN RIGHT ABDOMINAL 00 SIDE AND (LIVER) RUNS TO PAIN RIGHT THE SIDE AND RUNS TO THE Active 07/29/2012 [facility] Mastodynia Problem 2018-0 2018-01-30 2018-01-30 Memoria 1-16 18:20:45 18:20:45 l 05:29: Edmond Mastodynia 06 10/30/2017 01/30/2018 [facility] [place] Women's Allergies, Adverse Reactions, Alerts Allergy Allergy Status Severity Reaction(s) Onset Inactive Treating Comm ents Source Name Type Date Date Clinician morphine DA Active MO 0 [facility] 6[facility]12 [facility] 00:00: [place] [facility] morphine DA Active U 2018-10 [facility] 0-28 [place] 00:00: d 00 [facility] morphine DA Active U 0 [facility] 9-05 [place] 00:00: d 00 [facility] morphine DA Active [facility] 5-14 [place] 00:00: d 00 [facility] morphine morphine Active Memori a l [place] Medications Ordered Filled Start Stop Current Ordering Indication Dosage Frequency Signature Comments Components Source Medication Medication Date Date Medication? Clinician (SIG) Name Name Toradol 2011-10 Yes Kye De 10 mg, 1 Memoria mg oral 0-15 [place] tab, PO, l tablet 20:54: Q4H, PRN, Tre n 15 60 tab, Pain, Substituti on Allowed, TAB ketorolac 2011-10 No Kye De 15 mg, M emoria 0-15 [place] Route: l 20:08: IVP, Drug form: INJ, ONCE, Dosing Weight 78.182, kg, Priority: STAT, Start date: 07/29/12 15:08:00, Stop date: 07/29/12 15:08:00 hydromorpho 2011-10 No Kye De 1 mg, 0.5 Memoria ne 0-15 [place] mL, Route: l 19:29: IV, Drug Charlie 00 form: INJ, ONCE, Dosing Weight 78.182, kg, Start date: 07/29/12 14:29:00, Stop date: 07/29/12 14:29:00 Zofran 2011-10 No Kye De 4 mg, 2 Mem oria 0-15 [place] mL, Route: l 19:28: IVP, Drug Charlie 00 form: INJ, ONCE, Dosing Weight 78.182, kg, Priority: STAT, Start date: 07/29/12 14:28:00, Stop date: 07/29/12 14:28:00 omeprazole 2011- Yes Nury mccullough 0-15 on Allowed l 15:27: Edmond 10 Vital Signs Vital Name Observation Time Observation Value Comments Source Weight 2012-07-29 15:15:00 [facility] Height 2012-07-29 15:15:00 165.10 cm [facility] Procedures This patient has no known procedures. Encounters Start End Encounter Admission Attending Care Care Encounter Source Date/Time Date/Time Type Type Clinicians Facility Department ID 2018-12-18 2018-12-18 Outpatient Kadiyala, 2.16.840. 2.16.840.1. [id number] 10:42:00 23:59:00 Tootie 1.565623. [id number] 03 Jasen 3.615.108 5.108 2018-11-11 2018-11-11 Outpatient Bharat, 2.16.840. 2.16.840. 1. [id number] 09:20:00 09:20:00 Joan 1.431064. [id number] Maechelle 3.615.108 5.108 2018-10-28 2018-10-28 Outpatient Kadiyala, 2.16.840. 2.16.840.1. [id number] 14:20:00 14:20:00 Tootie 1.804117. [id number] 01 Jasen 3.615.108 5.108 2017-10-24 2017-10-24 Outpatient Bharat, 2.16.840. 2.16.840. 1. [id number] 13:12:00 23:59:00 Joan 1.081671. [id number] 00 Maechelle 3.615.108 5.108 2017-10-24 2017-10-24 Outpatient Bharat, 2.16.840. 2.16.840. 1. [id number] 13:12:00 23:59:00 Joan 1.487585. [id number] 00 Maechelle 3.615.108 5.108 Results Test Description Test Time Test Comments Results Result Comments Source BASIC METABOLIC PANEL 2020-03-26 13:58:00 Test Item Value Reference Range Interpretation Comme nts SODIUM (test code = NA) 142 mmol/l 134.0-147.0 N POTASSIUM (test code = K) 3.5 mmol/L 3.6-5.2 L CHLORIDE (test code = CL) 105 mmol/l 98.0-107.0 N CARBON DIOXIDE (test code = CO2) 27.4 mmol/l 21.0-33.0 N ANION GAP (test code = GAP) 13.1 0-20 N GLUCOSE (test code = GLU) 73 mg/dl 70.0-110.0 N BLOOD UREA NITROGEN (test code = BUN) 15 mg/dl 7.0-18.0 N CREATININE (test code = CREAT) 1.03 mg/dL 0.60-1.30 N GFR NON BLACK (test code = GFRNONBLACK) 60 mL/min 95-105 L GFR BLACK (test code = GFRBLACK) 73 mL/min 115-127 L CALCIUM (test code = CA) 8.6 mg/dl 8.0-10.5 N [id number] 13:58:00 Test Item Value Reference Range Interpretation Comments LIPASE (test code = LIP) 138 Units/L 65.0-230.0 N HCG SERUM [id number] 13:58:00 Test Item Value Reference Range Interpretation Comments HCG SERUM QUAL (test code = HCGQL) NEGATIVE NEGATIVE [id number] 13:58:00 Test Item Value Reference Range Interpretation Comments TROPONIN-I (test <0.02 NG/ML 0.00-0.06 N REFERENCE R TIMOTHY code = TROPI) TROPONIN I HEA LTHY INDIVIDUALS: < 0.06 ng/mL R/O ISCHE NEHEMIAS: 0.07 - 0.60 ng/ mL CUT-OFF RANGE F OR AMI: 0.60 - 1.5 ng/m L [id number] 13:58:00 Test Item Value Reference Range Interpretation Comments ALCOHOL (test code 0.00 gm/dL 0.00-0.00 N ETHYL ALC OHOL VALUES - = ALC) INTERPRETATION: 0.050 GM/DL - NOT INT OXICATED 0.100 GM/DL - INTOXICATED 0.3 50-0.450 GM/DL - SEVEREL Y INTOXICATED 0.5 50 GM/DL- FATAL INTOXICAT ION BASIC METABOLIC [id number] 13:51:00 Test Item Value Reference Range Interpretation Comments SODIUM (test code = NA) 142 mmol/l 134.0-147.0 N POTASSIUM (test code = K) 3.5 mmol/L 3.6-5.2 L CHLORIDE (test code = CL) 105 mmol/l 98.0-107.0 N CARBON DIOXIDE (test code = CO2) 27.4 mmol/l 21.0-33.0 N ANION GAP (test code = GAP) 13.1 0-20 N GLUCOSE (test code = GLU) 73 mg/dl 70.0-110.0 N BLOOD UREA NITROGEN (test code = 15 mg/dl 7.0-18.0 N BUN) CREATININE (test code = CREAT) 1.03 mg/dL 0.60-1.30 N GFR NON BLACK (test code = 60 mL/min 95-105 L GFRNONBLACK) GFR BLACK (test code = GFRBLACK) 73 mL/min 115-127 L CALCIUM (test code = CA) 8.6 mg/dl 8.0-10.5 N [id number] 13:51:00 Test Item Value Reference Range Interpretation Comments LIPASE (test code = LIP) 138 Units/L 65.0-230.0 N HCG SERUM [id number] 13:51:00 Test Item Value Reference Range Interpretation Comments HCG SERUM QUAL (test code = HCGQL) NEGATIVE [id number] 13:51:00 Test Item Value Reference Range Interpretation Comments TROPONIN-I (test <0.02 NG/ML 0.00-0.06 N REFERENCE R TIMOTHY code = TROPI) TROPONIN I HEA LTHY INDIVIDUALS: < 0.06 ng/mL R/O ISCHE NEHEMIAS: 0.07 - 0.60 ng/ mL CUT-OFF RANGE F OR AMI: 0.60 - 1.5 ng/m L [id number] 13:51:00 Test Item Value Reference Range Interpretation Comments ALCOHOL (test code 0.00 gm/dL 0.00-0.00 N ETHYL ALC OHOL VALUES - = ALC) INTERPRETATION: 0.050 GM/DL - NOT INT OXICATED 0.100 GM/DL - INTOXICATED 0.3 50-0.450 GM/DL - SEVEREL Y INTOXICATED 0.5 50 GM/DL- FATAL INTOXICAT ION BASIC METABOLIC [id number] 13:38:00 Test Item Value Reference Range Interpretation Comments SODIUM (test code = NA) 142 mmol/l 134.0-147.0 N POTASSIUM (test code = K) 3.5 mmol/L 3.6-5.2 L CHLORIDE (test code = CL) 105 mmol/l 98.0-107.0 N CARBON DIOXIDE (test code = CO2) 27.4 mmol/l 21.0-33.0 N ANION GAP (test code = GAP) 13.1 0-20 N GLUCOSE (test code = GLU) mg/dl 70.0-110.0 BLOOD UREA NITROGEN (test code = mg/dl 7.0-18.0 BUN) CREATININE (test code = CREAT) mg/dL 0.60-1.30 GFR NON BLACK (test code = mL/min 95-105 GFRNONBLACK) GFR BLACK (test code = GFRBLACK) mL/min 115-127 CALCIUM (test code = CA) mg/dl 8.0-10.5 [id number] 13:38:00 Test Item Value Reference Range Interpretation Comments LIPASE (test code = LIP) Units/L 65.0-230.0 HCG SERUM [id number] 13:38:00 Test Item Value Reference Range Interpretation Comments HCG SERUM QUAL (test code = HCGQL) NEGATIVE [id number] 13:38:00 Test Item Value Reference Range Interpretation Comments TROPONIN-I (test code = TROPI) NG/ML 0.00-0.06 [id number] 13:38:00 Test Item Value Reference Range Interpretation Comments ALCOHOL (test code = ALC) gm/dL 0.00-0.00 PROTHROMBIN [id number] 13:25:00 Test Item Value Reference Range Interpretation Comments PROTHROMBIN TIME 11.6 SECONDS 9.9-12.8 N PATIENT (test code = PTP) INTERNATIONAL NORMAL 1.0 0.89-1.14 N THE INR IS TO BE USED RATIO (test code = ONLY FOR MONITORING INR) ORAL ANTICOAGULANTTH ERAPY. THE FOLLOWING A RE SUGGESTED RANGE S FROM [facility] LEGE OF CHEST PHYSICIANS:DEEPTHI CATION INR VALUEPROPHYLAXI S OF VENOUS THROMBOS IS (ORTHOPEDIC ADELIA AUBREY) 2.0 - 3.0PROP HYLAXIS OF VENOUS THROM BOSIS (OTHER THAN HIG H-RISK SURGERY) 2.0 - 3.0TRE ATMENT OF DEEP VEIN THROMBOSIS OR PULMONARY EMBOL ISM 2.0 - 3.0PREV ENTION OF SYSTEMIC EMB OLISM TISSUE HEART VA LVES 2.0 - 3.0 AC [place] MYOCARDIAL INFA RCTION (TO PREVENT SYSTEMIC EMBOLI SM) 2.0 - 3.0 ACUTE MYOCARDIA L INFARCTION (TO PREVENT RECURRE NT INFARCT) 2.5 - 3.0 VALV ULAR HEART DISEASE 2.0 - 3.0 ATRIAL FIBRILATION 2.0 - 3.0BILEAFLET MECHANICAL VALV E IN AORTIC POSITION 2.0 - 3.0MECHAN ICAL PROSTHETIC VALV ES (HIGH RISK) 2.5 - 3.5PRESEN CE OF LUPUS ANTICOAGU LANT OR ANTIPHOSPHOLIP ID ANTIBODIES 2.5 - 3 .5 Is patient on anticoagulants? NTHROMBOPLASTIN TIME [id number] 13:25:00 Test Item Value Reference Range Interpretation Comments THROMBOPLASTIN TIME 29.80 SECONDS 25.86-36.07 N [place] [facility] PARTIAL (test code = Therape utic Range - PTT) APTT of 55.8-85 .4 secondscorrelat es with plasma heparin concentration o f 0.2-0.4 u/mL Ne w range effective - Is patient on anticoagulants? NDRUGS OF ABUSE SCREEN [id number] 13:23:00 Test Item Value Reference Range Interpretation Comments URN COCAINE (test code NEGATIVE NEGATIVE Cocai ne cut-off = COCAURN) concentration: 300 ng/mL URN CANNABINOIDS (test NEGATIVE NEGATIVE Canna binoids cut-off code = CANNABURN) concentrat ion: 50 ng/mL URN AMPHETAMINE (test NEGATIVE NEGATIVE Amphet amine cut-off code = AMPHETURN) concentrat ion: 1000 ng/mL URN BARBITURATE (test NEGATIVE NEGATIVE Barbit urate cut-off code = BARBITURN) concentrat ion: 200 ng/mL URN BENZODIAZEPINE NEGATIVE NEGATIVE Benzodiaz epine cut-off (test code = BENZOURN) maria ntration: 200 ng/mL URN OPIATES (test code NEGATIVE NEGATIVE Opiat es cut-off = OPIATURN) concentration: 200 ng/mL URN PHENCYCLIDINE (PCP) NEGATIVE NEGATIVE Phen cyclidine(PCP) (test code = PHENCURN) cut-o ff concentration: 25 ng/ml URN METHADONE (test NEGATIVE NEGATIVE Methadon e cut-off code = METHAURN) concentrati on: 300 ng/mL CBC W/AUTO [id number] 13:22:00 Test Item Value Reference Range Interpretation Comments WHITE BLOOD CELL (test code = 9.4 K/mm3 4.5-11.0 N WBC) RED BLOOD CELL (test code = 4.25 M/mm3 3.80-5.20 N RBC) HEMOGLOBIN (test code = HGB) 13.0 gm/dL 12.0-16.0 N HEMATOCRIT (test code = HCT) 40.5 % 36.0-48.0 N MEAN CELL VOLUME (test code = 95.3 UM3 82.0-99.0 N MCV) MEAN CELL HGB (test code = MCH) 30.6 UUG 25.5-32.5 N MEAN CELL HGB CONCETRATION 32.1 gm/dL 29.0-35.5 N (test code = MCHC) RED CELL DISTRIBUTION WIDTH 13.4 % 11.5-15.0 N (test code = RDW) RED CELL DISTRIBUTION WIDTH SD 46.7 fL 34.8-50.2 N (test code = RDW-SD) PLATELET COUNT (test code = 332 K/mm3 150-400 N PLT) MEAN PLATELET VOLUME (test code 10.8 fl 7.4-10.4 H = MPV) NEUTROPHIL % (test code = NT%) 56.9 % 49.0-76.0 N IMMATURE GRANULOCYTE % (test 0.2 % 0.0-0.4 N code = IG%) LYMPHOCYTE % (test code = LY%) 30.3 % 23.0-38.0 N MONOCYTE % (test code = MO%) 10.5 % 1.0-10.0 H EOSINOPHIL % (test code = EO%) 1.8 % 1.0-5.0 N BASOPHIL % (test code = BA%) 0.3 % 0.0-1.0 N NEUTROPHIL # (test code = NT#) 5.3 K/mm3 2.4-6.3 N IMMATURE GRANULOCYTE # (test 0.02 x10 3/uL 0.00-0.07 N code = IG#) LYMPHOCYTE # (test code = LY#) 2.8 K/mm3 1.2-4.0 N MONOCYTE # (test code = MO#) 1.0 K/mm3 0.0-0.6 H EOSINOPHIL # (test code = EO#) 0.2 K/MM3 0.0-0.7 N BASOPHIL # (test code = BA#) 0.0 K/mm3 0.0-0.2 N UA RFLX MICR CULT IF [id number] 13:22:00 Test Item Value Reference Range Interpretation Comments UA GLUCOSE DIPSTICK NORMAL mg/dl NORMAL (test code = DGLUU) UA BILIRUBIN DIPSTICK NEGATIVE mg/dL NEGATIVE (test code = BILU) UA KETONE DIPSTICK NEGATIVE mg/dl NEGATIVE (test code = KETU) UA SPECIFIC GRAVITY 1.015 1.000-1.030 (test code = SGU) UA BLOOD DIPSTICK 10 Benjamin/micL NEGATIVE A (test code = BAYRON) Benjamin/micL UA PH DIPSTICK (test 7.0 5.0-9.0 code = WALLACE) UA PROTEIN DIPSTICK NEGATIVE mg/dl NEGATIVE (test code = PROU) UA UROBILINIOGEN NORMAL mg/dl NORMAL DIPSTICK (test code = URO) UA NITRITE DIPSTICK NEGATIVE NEGATIVE (test code = PEEWEE) UA LEUKOCYTE ESTERASE 500 Beckie/micL NEGATIVE A DIPSTICK (test code = Beckie/micL LEUU) UA WBC (test code = >50 WBC/HPF NONE A WBCU) UA SQUAMOUS CELLS 2-5 #/hpf (test code = SQU) UA CULTURE NEEDED? YES,WBC>10 & Culture Chk Criteria met, (test code = UACULT) EPI<=15 Criteria Uri ne Culture in-process. Indication for culture: Dysuria/FrequencySpecimen Description: CLEAN CATCHUA RFLX MICR CULT IF [id number] 13:17:00 Test Item Value Reference Range Interpretation Comments UA GLUCOSE DIPSTICK (test NORMAL mg/dl NORMAL code = DGLUU) UA BILIRUBIN DIPSTICK NEGATIVE mg/dL NEGATIVE (test code = BILU) UA KETONE DIPSTICK (test NEGATIVE mg/dl NEGATIVE code = KETU) UA SPECIFIC GRAVITY (test 1.015 1.000-1.030 code = SGU) UA BLOOD DIPSTICK (test 10 Benjamin/micL Benjamin/micL NEGATIVE A code = BAYRON) UA PH DIPSTICK (test code 7.0 5.0-9.0 = WALLACE) UA PROTEIN DIPSTICK (test NEGATIVE mg/dl NEGATIVE code = PROU) UA UROBILINIOGEN DIPSTICK NORMAL mg/dl NORMAL (test code = URO) UA NITRITE DIPSTICK (test NEGATIVE NEGATIVE code = PEEWEE) UA LEUKOCYTE ESTERASE 500 Beckie/micL NEGATIVE A DIPSTICK (test code = Beckie/micL LEUU) UA WBC (test code = WBCU) WBC/HPF NONE UA CULTURE NEEDED? (test Criteria Culture Chk code = UACULT) Indication for culture: Dysuria/FrequencySpecimen Description: CLEAN CATCH- CT HEAD/BRAIN W/O [id number] 12:45:00 FAX: Laurie Lambert MD [phone] [place]: St: DIS Name: WAYNE HUI [facility] : 1970 Age/S: 49/F [address] [facility] Unit: [id number] Loc: [address] Phys: [place] [address] Acct: [id number] Dis Date: 03/27/2020 Status: DIS IN PHONE #: [phone] Exam Date: 03/26/2020 1230 FAX #: [phone] Reason: head injury, dizziness EXAMS: CPT CODE: [id number] CT HEAD/BRAIN W/O CONT 28913 CLINICAL HISTORY: Head injury, dizziness . CT brain, unenhanced. Reformatted sagittal and coronal images. COMPARISON: August 11, 2019. Automated exposure control, iterative reconstruction technique, and/or adjustment of mA and/or kV according to patient's size was utilized for optimum radiation dose reduction. An unenhanced study of the brain was performed. The cortical pattern is sy mmetric and stable.. No hemorrhage, mass effect, or findings of CVA can be seen. No evidence of ventricular shift. The posterior fossa structures appear to be intact. Bone window settings do not show any evidence of skull fracture. Visualized sinuses appear to be clear. . IMPRESSION: No acute appearing intracranial abnormality. Location: U19 at 1245 Reported and signed by: Mike Bucio M.D CC: Laurie Lambert MD Technologist: CHATA Chowdhuryrd Dt/Tm: 03/26/2020 (5837) [email or web address] Orig Print D/T: S: 03/26/2020 (5536 PAGE 1 Signed Report- XR CHEST 1 [id number] 12:45:00 FAX: Laurie Lambert MD [phone] [place]: St: DIS Name: WAYNE HUI [facility] : 1970 Age/S: 49/F [address] [facility] Unit#: [id number] Loc: [address] Phys: [place] [address] Acct: [id number] Dis Date: [id number] Status: DIS IN PHONE #: [phone] Exam Date: 03/26/2020 1225 FAX #: [phone] Reason: weakness EXAMS: CPT CODE: [id number] XR CHEST 1 V 61479 EXAMINATION: - XR CHEST 1 V. LOCATION: S17. HISTORY: Weakness. COMPARISON: Chest x-ray 08/11/19. FINDINGS: Examination is limited due to portable technique. Cardiac silhouette/Mediastinal contour: Within normal limits. Atherosclerotic calcification of aortic arch. Lungs: No focal consolidation. No large pleural effusion. Osseous Structures: Mild degenerative changes affect thoracic spine. Additional Findings: Bilateral breast prosthesis. IMPRESSION: No focal consolidation. at 2767 Reported and signed by: Antione Pressley M.D. CC: Laurie Lambert MD Technologist: RASHAD Troy Date/Time/By: 03/26/2020 (7209) : By: [email or web address] PAGE 1 Signed Report FAX: Laurie Lambert MD [phone] [place]: St: DIS -- Name: WAYNE HUI [facility] : 1970 Age/S: 49/F [address] [facility] Unit #: [id number] Loc: [address] Phys: [place] [address] Acct: [id number] Dis Date: [id number] Status: DIS IN PHONE #: [phone] Exam Date: 03/26/2020 1225 FAX #: [phone] Reason: weakness EXAMS: CPT CODE: [id number] XR CHEST 1 V 93445 <Continued> Orig Print D/T: S: 03/26/2020 (6169) PAGE 2 Signed Report- XR CHEST 1 V 2020-03-26 12:45:00 FAX: Laurie Lambert MD [phone] [place]: St: PRE Name: WAYNE HUI [facility] : 1970 Age/S: 49/F [address] Unit#: [id number] Loc: [address] [place], [place]: [place] [address] Acct: [id number] Dis Date: Status: PRE ER PHONE #: [phone] Exam Date: 03/26/2020 1225 FAX #: [phone] Reason: weakness EXAMS: CPT CODE: [id number] XR CHEST 1 V 20595 EXAMINATION: - XR CHEST 1 V. LOCATION: S17. HISTORY: Weakness. COMPARISON: Chest x-ray 08/11/19. FINDINGS: Examination is limited due to portable technique. Cardiac silhouette/Mediastinal contour: Within normal limits. Atherosclerotic calcification of aortic arch. Lungs: No focal consolidation. No large pleural effusion. Osseous Structures: Mild degenerative changes affect thoracic spine. Additional Findings: Bilateral breast prosthesis. IMPRESSION: No focal consolidation. at 1245 Reported and signed by: Antione Pressley M.D. CC: Laurie Lambert MD Technologist: RASHAD VARMA [facility] Date/Time/By: 03/26/2020 (6110) : By: [email or web address] PAGE 1 Signed Report FAX: Laurie Lambert MD [phone] [place]: St: PRE -- Name: WAYNE HUI [facility] : 1970 Age/S: 49/F [address] [employer] Unit #: [id number] Loc: [address] [place], [place]: [place] [address] Acct: [id number] Dis Date: Status: PRE ER PHONE #: [phone] Exam Date: 03/26/2020 1225 FAX #: [phone] Reason: weakness EXAMS: CPT CODE: [id number] XR CHEST 1 V 05682 <Continued> Orig Print D/T: S: 03/26/2020 (2168) PAGE 2 Signed Report- CT HEAD/BRAIN W/O [id number] 12:45:00 FAX: Laurie Lambert MD [phone] [place]: St: PRE Name: WAYNE HUI [facility] : 1970 Age/S: 49/F [address] [facility] Unit: [id number] Loc: [address] Phys: [place] [address] Acct: [id number] Dis Date: Status: PRE ER PHONE #: [phone] Exam Date: 03/26/2020 1230 FAX #: [phone] Reason: head injury, dizziness EXAMS: CPT CODE: [id number] CT HEAD/BRAIN W/O CONT 46763 CLINICAL HISTORY: Head injury, dizziness . CT brain, unenhanced. Reformatted sagittal and coronal images. COMPARISON: August 11, 2019. Automated exposure control, iterative reconstruction technique, and/or adjustment of mA and/or kV according to patient's size was utilized for optimum radiation dose reduction. An unenhanced study of the brain was performed. The cortical pattern is sy mmetric and stable.. No hemorrhage, mass effect, or findings of CVA can be seen. No evidence of ventricular shift. The posterior fossa structures appear to be intact. Bone window settings do not show any evidence of skull fracture. Visualized sinuses appear to be clear. . IMPRESSION: No acute appearing intracranial abnormality. Location: U19 at 1245 Reported and signed by: Mike uBcio M.D CC: Laurie aLmbert MD Technologist: CHATA DAN Trnscrd Dt/Tm: 03/26/2020 (8666) [email or web address] Orig Print D/T: S: 03/26/2020 (5237 PAGE 1 Signed Report- XR C-SPINE 2-3 VIEWS 2019-08-13 13:35:00 FAX: Jaclyn Baez MD [phone] [place]: St: DIS FAX: Dottie Burnett MD [phone] Name: WAYNE HUI [facility] : 1970 Age/S: 49/F [address] [facility] Unit #: [id number] Loc: [place], [place]: [place] [address] Acct: [id number] Dis Date: Status: DIS IN PHONE #: [phone] Exam Date: 08/13/2019 1320 FAX #: [phone] Reason: left arm pain and numbness EXAMS: CPT CODE: [id number] XR C-SPINE 2-3 VIEWS 62160 Site ID: [id number] INDICATION: Left arm pain and numbness FINDINGS: Normal cervical lordosis. No fracture or prevertebral soft tissue swelling. Minimal C5-C6disc height loss with ventral endplate spondylosis. Cervical uncovertebral and facet joints appear well- maintained. IMPRESSION: Minimal C5-C6 disc height loss and ventral endplate spondylosis [id number] Reported and signed by: Miguel Angel Adkins M.D. CC: Jaclyn Moseley MD; Dottie Ashby MD Technologist: DAVID Huizar Date/Time/By: 08/13/2019 (5043) : By: [email or web address] PAGE 1 Signed Report FAX: Jaclyn Baez MD [phone] [place]: St: DIS FAX: Dottie Burnett MD [phone] Name: WAYNE HUI [facility] : 1970 Age/S: 49/F [address] [employer] Unit #: [id number] Loc: [place], [place] Phys: Dottie Ashby MD77591 Acct: [id number] Dis Date: Status: DIS IN PHONE #: [phone] Exam Date: 08/13/2019 1320 FAX #: [phone] Reason: left arm pain and numbness EXAMS: CPT CODE: [id number] XR C-SPINE 2-3 VIEWS 13174 <Continued> Orig Print D/T: S: 08/13/2019 (3744) PAGE 2 Signed Report- XR C-SPINE 2-3 [id number] 13:35:00 FAX: Jaclyn Baez MD [phone] [place]: St: ADM FAX: Dottie Burnett MD [phone] Name: FAMILIA HUICIELA [facility] : 1970 Age/S: 49/F [address] [employer] Unit #: [id number] Loc: [address] [place], [place]: [place] [address] Acct: [id number] Dis Date: Status: ADM IN PHONE #: [phone] Exam Date: 08/13/2019 1320 FAX #: [phone] Reason: left arm pain and numbness EXAMS: CPT CODE: [id number] XR C-SPINE 2-3 VIEWS 62847 Site ID: [id number] INDICATION: Left arm pain and numbness FINDINGS: Normal cervical lordosis. No fracture or prevertebral soft tissue swelling. Minimal C5-C6disc height loss with ventral endplate spondylosis. Cervical uncovertebral and facet joints appear well- maintained. IMPRESSION: Minimal C5-C6 disc height loss and ventral endplate spondylosis [id number] Reported and signed by: Miguel Angel Adkins M.D. CC: Jaclyn Moseley MD; Dottie Ashby MD Technologist: DAVID Huizar Date/Time/By: 08/13/2019 (1361) : By: [email or web address] PAGE 1 Signed Report FAX: Jaclyn Baez MD [phone] [place]: St: ADM FAX: Dottie Burnett MD [phone] Name: WAYNE HUI [facility] : 1970 Age/S: 49/F [address] [facility] Unit #: [id number] Loc: [address] [place] [address] Phys: Dottie Ashby [id number] Acct: [id number] Dis Date: Status: ADM IN PHONE #: [phone] Exam Date: 08/13/2019 1320 FAX #: [phone] Reason: left arm pain and numbness EXAMS: CPT CODE: [id number] XR C-SPINE 2-3 VIEWS [id number] <Continued> Orig Print D/T: S: 08/13/2019 (6796) PAGE 2 Signed ReportLIPID PROFILE (CORONARY RISK)2019-08-13 08:47:00 Test Item Value Reference Range Interpretation Comments TRIGLYCERIDES (test code = TRIG) 99 mg/dl 40.0-150.0 N CHOLESTEROL (test code = CHOL) 213 mg/dl 0.0-200.0 H CHOLESTEROL/HDL RATIO (test code = 4.0 RATIO CHOLHDL) HDL CHOLESTEROL (test code = HDL) 53 mg/dl 30.0-60.0 N LIPOPROTEIN LDL (test code = LDL) 152 mg/dl 70-130 H THYROID STIMULATING [id number] 08:47:00 Test Item Value Reference Range Interpretation Comments THYROID STIMULATING 1.81 IU/ML 0.47-5.01 N Result i s in HORMONE (test code = Interna tional TSH) Units/millilite r [id number] 08:45:00 Test Item Value Reference Range Interpretation Comments HGBA1C% (test code = HGBA1C%) 6.5 %A1C 4.8-6.0 H ESTIMATED AVERAGE GLUCOSE (test 140 MG/DL code = EAG) [id number] 00:01:00 Test Item Value Reference Range Interpretation Comments TROPONIN-I (test <0.02 NG/ML 0.00-0.06 N REFERENCE R TIMOTHY code = TROPI) TROPONIN I HEA LTHY INDIVIDUALS: < 0.06 ng/mL R/O ISCHE NEHEMIAS: 0.07 - 0.60 ng/ mL CUT-OFF RANGE F OR AMI: 0.60 - 1.5 ng/m L [id number] 20:06:00 Test Item Value Reference Range Interpretation Comments TROPONIN-I (test <0.02 NG/ML 0.00-0.06 N REFERENCE R TIMOTHY code = TROPI) TROPONIN I HEA LTHY INDIVIDUALS: < 0.06 ng/mL R/O ISCHE NEHEMIAS: 0.07 - 0.60 ng/ mL CUT-OFF RANGE F OR AMI: 0.60 - 1.5 ng/m L - CT HEAD/BRAIN W/O [id number] 18:24:00 FAX: Roula Escobar MD [phone] [place]: St: DIS Name: WAYNE HUI [facility] : 1970 Age/S: 49/F [address] [facility] [address] Unit: [id number] Loc: [place], [place]: [place] [address] Acct: [id number] Dis Date: Status: DIS I N PHONE #: [phone] Exam Date: 08/11/2019 174 FAX #: [phone] Reason: LEFT CHEST PAIN, LEFT ARM PAIN/LEFT ARM NUMBNES EXAMS: CPT CODE: [id number] CT HEAD/BRAIN W/O CONT 07365 CLINICAL HISTORY: Left chest pain left arm pain, numbness.. CT brain, unenhanced. Reformatted sagittal and coronal images. COMPARISON: None. Automated exposure control, iterative reconstruction technique, and/or adjustment of mA and/or kV according to patient's size was utilized for optimum radiation dose reduction. An unenhanced study of the brain was performed. Symmetric cortical pattern is found. No areas of edema in the cortex are seen.. No hemorrhage, mass effect, or findings of CVA can be seen. No evidence of ventricular shift. The posteriorfossa structures appear to be intact. Bone window settings do not show any evidence ofskull fracture. Visualized sinuses appear to be clear. . IMPRESSION: No acute appearing intracranial abnormality. Location: U19 at 1824 Reported and signed by: Mike Bucio M.D.CC: Roula Escobar MD Technologist: TIKA Millerkyrd Dt/Tm: 08/11/2019 (1823) Raissa Orig Print D/T: S: 08/11/2019 (3787 PAGE 1 Signed Report- CT HEAD/BRAIN W/O [id number] 18:24:00 FAX: Roula Escobar MD [phone] [place]: St: ADM Name: WAYNE HUI [facility] : 1970 Age/S: 49/F [address] [facility] Unit: [id number] Loc: [place], [place]: [place] [address] Acct: [id number] Dis Date: Status: ADM I N PHONE #: [phone] Exam Date: 08/11/2019 174 FAX #: [phone] Reason: LEFT CHEST PAIN, LEFT ARM PAIN/LEFT ARM NUMBNES EXAMS: CPT CODE: [id number] CT HEAD/BRAIN W/O CONT 22039 CLINICAL HISTORY: Left chest pain left arm pain, numbness.. CT brain, unenhanced. Reformatted sagittal and coronal images. COMPARISON: None. Automated exposure control, iterative reconstruction technique, and/or adjustment of mA and/or kV according to patient's size was utilized for optimum radiation dose reduction. An unenhanced study of the brain was performed. Symmetric cortical pattern is found. No areas of edema in the cortex are seen.. No hemorrhage, mass effect, or findings of CVA can be seen. No evidence of ventricular shift. The posteriorfossa structures appear to be intact. Bone window settings do not show any evidence ofskull fracture. Visualized sinuses appear to be clear. . IMPRESSION: No acute appearing intracranial abnormality. Location: U19 at 1824 Reported and signed by: Mike Bucio M.D. CC: Roula Escobar MD Technologist: TIKA MAHONEY Trnscrd Dt/Tm: 08/11/2019 (1823) [email or web address] Orig Print D/T: S: 08/11/2019(9337 PAGE 1 Signed ReportBASIC METABOLIC [id number] 15:10:00 Test Item Value Reference Range Interpretation Comments SODIUM (test code = NA) 140 mmol/l 134.0-147.0 N POTASSIUM (test code = K) 3.9 mmol/L 3.6-5.2 N CHLORIDE (test code = CL) 102 mmol/l 98.0-107.0 N CARBON DIOXIDE (test code = CO2) 30.0 mmol/l 21.0-33.0 N ANION GAP (test code = GAP) 11.9 0-20 N GLUCOSE (test code = GLU) 93 mg/dl 70.0-110.0 N BLOOD UREA NITROGEN (test code = 17 mg/dl 7.0-18.0 N BUN) CREATININE (test code = CREAT) 0.98 mg/dL 0.60-1.30 N GFR NON BLACK (test code = 64 mL/min 95-105 L GFRNONBLACK) GFR BLACK (test code = GFRBLACK) 77 mL/min 115-127 L CALCIUM (test code = CA) 9.4 mg/dl 8.0-10.5 N Specimen comments: .HEPATIC FUNCTION PANEL [id number] 15:10:00 Test Item Value Reference Range Interpretation Comments TOTAL PROTEIN (test code = PROT) 8.0 GM/DL 6.0-8.1 N ALBUMIN (test code = ALB) 4.4 gm/dL 3.2-4.7 N BILIRUBIN TOTAL (test code = BILT) 0.2 mg/dl 0.0-1.0 N BILIRUBIN DIRECT (test code = 0.1 mg/dl 0.0-0.3 N BILD) SGOT/AST (test code = AST) 16 Units/L 15.0-37.0 N SGPT/ALT (test code = ALT) 29 Units/L 12.0-78.0 N ALKALINE PHOSPHATASE TOTAL (test 72 Units/L 50.0-136.0 N code = ALKP) Specimen comments: .[id number] 15:10:00 Test Item Value Reference Range Interpretation Comments LIPASE (test code = LIP) 220 Units/L 65.0-230.0 N Specimen comments: .B-TYPE NATRIURETIC [id number] 15:10:00 Test Item Value Reference Range Interpretation Comments B-TYPE NATRIURETIC PEPTIDE (test code PG/ML 5-100 = BNP) Specimen comments: .[id number] 15:10:00 Test Item Value Reference Range Interpretation Comments CKMB (test code = 1.2 NG/ML 0.5-5.0 N DISREGARD CKMB INDEX CKMBT) CALCULATION WHE NEVER THE CKMBT ISREPORTE D <0.5 Specimen comments: .[id number] 15:10:00 Test Item Value Reference Range Interpretation Comments TROPONIN-I (test <0.02 NG/ML 0.00-0.06 N REFERENCE R TIMOTHY code = TROPI) TROPONIN I HEA LTHY INDIVIDUALS: < 0.06 ng/mL R/O ISCHE NEHEMIAS: 0.07 - 0.60 ng/ mL CUT-OFF RANGE F OR AMI: 0.60 - 1.5 ng/m L Specimen comments: .BASIC METABOLIC [id number] 15:10:00 Test Item Value Reference Range Interpretation Comments SODIUM (test code = NA) 140 mmol/l 134.0-147.0 N POTASSIUM (test code = K) 3.9 mmol/L 3.6-5.2 N CHLORIDE (test code = CL) 102 mmol/l 98.0-107.0 N CARBON DIOXIDE (test code = CO2) 30.0 mmol/l 21.0-33.0 N ANION GAP (test code = GAP) 11.9 0-20 N GLUCOSE (test code = GLU) 93 mg/dl 70.0-110.0 N BLOOD UREA NITROGEN (test code = 17 mg/dl 7.0-18.0 N BUN) CREATININE (test code = CREAT) 0.98 mg/dL 0.60-1.30 N GFR NON BLACK (test code = 64 mL/min 95-105 L GFRNONBLACK) GFR BLACK (test code = GFRBLACK) 77 mL/min 115-127 L CALCIUM (test code = CA) 9.4 mg/dl 8.0-10.5 N Specimen comments: .HEPATIC FUNCTION PANEL [id number] 15:10:00 Test Item Value Reference Range Interpretation Comments TOTAL PROTEIN (test code = PROT) 8.0 GM/DL 6.0-8.1 N ALBUMIN (test code = ALB) 4.4 gm/dL 3.2-4.7 N BILIRUBIN TOTAL (test code = BILT) 0.2 mg/dl 0.0-1.0 N BILIRUBIN DIRECT (test code = 0.1 mg/dl 0.0-0.3 N BILD) SGOT/AST (test code = AST) 16 Units/L 15.0-37.0 N SGPT/ALT (test code = ALT) 29 Units/L 12.0-78.0 N ALKALINE PHOSPHATASE TOTAL (test 72 Units/L 50.0-136.0 N code = ALKP) Specimen comments: .[id number] 15:10:00 Test Item Value Reference Range Interpretation Comments LIPASE (test code = LIP) 220 Units/L 65.0-230.0 N Specimen comments: .B-TYPE NATRIURETIC [id number] 15:10:00 Test Item Value Reference Range Interpretation Comments B-TYPE NATRIURETIC PEPTIDE (test 60.7 PG/ML 5-100 N code = BNP) Specimen comments: .[id number] 15:10:00 Test Item Value Reference Range Interpretation Comments CKMB (test code = 1.2 NG/ML 0.5-5.0 N DISREGARD CKMB INDEX CKMBT) CALCULATION WHE NEVER THE CKMBT ISREPORTE D <0.5 Specimen comments: .[id number] 15:10:00 Test Item Value Reference Range Interpretation Comments TROPONIN-I (test <0.02 NG/ML 0.00-0.06 N REFERENCE R TIMOTHY code = TROPI) TROPONIN I HEA LTHY INDIVIDUALS: < 0.06 ng/mL R/O ISCHE NEHEMIAS: 0.07 - 0.60 ng/ mL CUT-OFF RANGE F OR AMI: 0.60 - 1.5 ng/m L Specimen comments: .URINALYSIS [id number] 15:09:00 Test Item Value Reference Range Interpretation Comments UA COLOR (test code = STRAW COLU) UA APPEARANCE (test code CLEAR = APPU) UA GLUCOSE DIPSTICK (test NORMAL mg/dl NORMAL code = DGLUU) UA BILIRUBIN DIPSTICK NEGATIVE mg/dL NEGATIVE (test code = BILU) UA KETONE DIPSTICK (test NEGATIVE mg/dl NEGATIVE code = KETU) UA SPECIFIC GRAVITY (test 1.010 1.000-1.030 code = SGU) UA BLOOD DIPSTICK (test NEGATIVE Benjamin/micL NEGATIVE code = BAYRON) UA PH DIPSTICK (test code 7.0 5.0-9.0 = WALLACE) UA PROTEIN DIPSTICK (test NEGATIVE mg/dl NEGATIVE code = PROU) UA UROBILINIOGEN DIPSTICK NORMAL mg/dl NORMAL (test code = URO) UA NITRITE DIPSTICK (test NEGATIVE NEGATIVE code = PEEWEE) UA LEUKOCYTE ESTERASE 500 Beckie/micL NEGATIVE A DIPSTICK (test code = Beckie/micL LEUU) UA WBC (test code = WBCU) 4-9 WBC/HPF NONE A UA RBC (test code = RBCU) 0-2 RBC/HPF 0-3 UA EPITHELIAL CELLS (test 0-3 EPI/HPF 0-3 code = EPIU) UA BACTERIA (test code = FEW NONE BACU) UA RENAL CELLS (test code FEW = MARY) Specimen comments: Clean CatchDRUGS OF ABUSE SCREEN [id number] 15:07:00 Test Item Value Reference Range Interpretation Comments URN COCAINE (test code NEGATIVE NEGATIVE Cocai ne cut-off = COCAURN) concentration: 300 ng/mL URN CANNABINOIDS (test NEGATIVE NEGATIVE Canna binoids cut-off code = CANNABURN) concentrat ion: 50 ng/mL URN AMPHETAMINE (test NEGATIVE NEGATIVE Amphet amine cut-off code = AMPHETURN) concentrat ion: 1000 ng/mL URN BARBITURATE (test NEGATIVE NEGATIVE Barbit urate cut-off code = BARBITURN) concentrat ion: 200 ng/mL URN BENZODIAZEPINE NEGATIVE NEGATIVE Benzodiaz epine cut-off (test code = BENZOURN) maria ntration: 200 ng/mL URN OPIATES (test code NEGATIVE NEGATIVE Opiat es cut-off = OPIATURN) concentration: 200 ng/mL URN PHENCYCLIDINE (PCP) NEGATIVE NEGATIVE Phen cyclidine(PCP) (test code = PHENCURN) cut-o ff concentration: 25 ng/ml URN METHADONE (test NEGATIVE NEGATIVE Methadon e cut-off code = METHAURN) concentrati on: 300 ng/mL Specimen comments: Clean CatchURINALYSIS [id number] 15:07:00 Test Item Value Reference Range Interpretation Comments UA COLOR (test code = COLU) UA APPEARANCE (test code = APPU) UA GLUCOSE DIPSTICK (test NORMAL mg/dl NORMAL code = DGLUU) UA BILIRUBIN DIPSTICK NEGATIVE mg/dL NEGATIVE (test code = BILU) UA KETONE DIPSTICK (test NEGATIVE mg/dl NEGATIVE code = KETU) UA SPECIFIC GRAVITY (test 1.010 1.000-1.030 code = SGU) UA BLOOD DIPSTICK (test NEGATIVE Benjamin/micL NEGATIVE code = BAYRON) UA PH DIPSTICK (test code 7.0 5.0-9.0 = WALLACE) UA PROTEIN DIPSTICK (test NEGATIVE mg/dl NEGATIVE code = PROU) UA UROBILINIOGEN DIPSTICK NORMAL mg/dl NORMAL (test code = URO) UA NITRITE DIPSTICK (test NEGATIVE NEGATIVE code = PEEWEE) UA LEUKOCYTE ESTERASE 500 Beckie/micL NEGATIVE A DIPSTICK (test code = Beckie/micL LEUU) UA WBC (test code = WBCU) WBC/HPF NONE UA RBC (test code = RBCU) RBC/HPF 0-3 UA EPITHELIAL CELLS (test EPI/HPF 0-3 code = EPIU) UA BACTERIA (test code = NONE BACU) Specimen comments: Clean CatchPROTHROMBIN [id number] 14:52:00 Test Item Value Reference Range Interpretation Comments PROTHROMBIN TIME 10.9 SECONDS 9.9-12.8 N PATIENT (test code = PTP) INTERNATIONAL NORMAL 0.9 0.89-1.14 N THE INR IS TO BE USED RATIO (test code = ONLY FOR MONITORING INR) ORAL ANTICOAGULANTTH ERAPY. THE FOLLOWING A RE SUGGESTED RANGE S FROM [facility] LEGE OF CHEST PHYSICIANS:DEEPTHI CATION INR VALUEPROPHYLAXI S OF VENOUS THROMBOS IS (ORTHOPEDIC ADELIA AUBREY) 2.0 - 3.0PROP HYLAXIS OF VENOUS THROM BOSIS (OTHER THAN HIG H-RISK SURGERY) 2.0 - 3.0TRE ATMENT OF DEEP VEIN THROMBOSIS OR PULMONARY EMBOL ISM 2.0 - 3.0PREV ENTION OF SYSTEMIC EMB OLISM TISSUE HEART VA LVES 2.0 - 3.0 AC [place] MYOCARDIAL INFA RCTION (TO PREVENT SYSTEMIC EMBOLI SM) 2.0 - 3.0 ACUTE MYOCARDIA L INFARCTION (TO PREVENT RECURRE NT INFARCT) 2.5 - 3.0 VALV ULAR HEART DISEASE 2.0 - 3.0 ATRIAL FIBRILATION 2.0 - 3.0BILEAFLET MECHANICAL VALV E IN AORTIC POSITION 2.0 - 3.0MECHAN ICAL PROSTHETIC VALV ES (HIGH RISK) 2.5 - 3.5PRESEN CE OF LUPUS ANTICOAGU LANT OR ANTIPHOSPHOLIP ID ANTIBODIES 2.5 - 3 .5 Specimen comments: .Is patient on anticoagulants? NTHROMBOPLASTIN TIME PARTIAL 2019-08-11 14:52:00 Test Item Value Reference Range Interpretation Comments THROMBOPLASTIN TIME 32.50 SECONDS 25.86-36.07 N [place] d [facility] PARTIAL (test code = Therape utic Range - PTT) APTT of 55.8-85 .4 secondscorrelat es with plasma heparin concentration o f 0.2-0.4 u/mL Ne w range effective - Specimen comments: .Is patient on anticoagulants? [id number] 14:52:00 Test Item Value Reference Range Interpretation Comments D-DIMER/FSP (test <200 ng/mL 200.0-230.0 L Pe r travel registered nurse icu code = DDIMER) recommendatio n, the CUT OFFfor the Diagnosis of PE or DVT with a 100% SEN SITIVITY &100% PREDICTIV E VALUE is suggested to be 230 ng/mL D-DIMERUNIT(DDU ). D-DIMER RESULTS MAY BE AFFECTED BY:1. HEMOGLOBI N > 100 mg/dL2. BILIRUB IN > 10 mg/dL3. TRIGLYC ERIDES > 1500 mg/dL4. Th e presence of RHEUMATIOID FACTOR may produce an overestimation of the test result. Specimen comments: .Is patient on anticoagulants? NTROPONIN I [id number] 14:48:00 Test Item Value Reference Range Interpretation Comments TROPONIN I RAPID 0.01 0.00-0.08 N Negati ve: <= 0.08 (test code = Positive: > = 0.09An TROPIRAP) elevated tropon in value alone is not sufficie nt todiagnose a myocardial infa rction. Rather, the patient'scl inical presentation (h istory, physical exam) and ECGshould be used in conj unction with troponin in the diagnostic evaluation of s uspected myocardial infa rction.A serial sampling protoc ol is recommended to facilitatethe identification of temporal changes in trop onin levelscharacter istic of [place]. CBC W/AUTO [id number] 14:45:00 Test Item Value Reference Range Interpretation Comments WHITE BLOOD CELL (test code = 10.9 K/mm3 4.5-11.0 N WBC) RED BLOOD CELL (test code = 4.32 M/mm3 3.80-5.20 N RBC) HEMOGLOBIN (test code = HGB) 13.0 gm/dL 12.0-16.0 N HEMATOCRIT (test code = HCT) 39.5 % 36.0-48.0 N MEAN CELL VOLUME (test code = 91.4 UM3 82.0-99.0 N MCV) MEAN CELL HGB (test code = MCH) 30.1 UUG 25.5-32.5 N MEAN CELL HGB CONCETRATION 32.9 gm/dL 29.0-35.5 N (test code = MCHC) RED CELL DISTRIBUTION WIDTH 13.2 % 11.5-15.0 N (test code = RDW) RED CELL DISTRIBUTION WIDTH SD 43.7 fL 34.8-50.2 N (test code = RDW-SD) PLATELET COUNT (test code = 344 K/mm3 150-400 N PLT) MEAN PLATELET VOLUME (test code 10.5 fl 7.4-10.4 H = MPV) NEUTROPHIL % (test code = NT%) 69.7 % 49.0-76.0 N IMMATURE GRANULOCYTE % (test 0.3 % 0.0-0.4 N code = IG%) LYMPHOCYTE % (test code = LY%) 19.7 % 23.0-38.0 L MONOCYTE % (test code = MO%) 8.5 % 1.0-10.0 N EOSINOPHIL % (test code = EO%) 1.5 % 1.0-5.0 N BASOPHIL % (test code = BA%) 0.3 % 0.0-1.0 N NEUTROPHIL # (test code = NT#) 7.6 K/mm3 2.4-6.3 H IMMATURE GRANULOCYTE # (test 0.03 x10 3/uL 0.00-0.07 N code = IG#) LYMPHOCYTE # (test code = LY#) 2.1 K/mm3 1.2-4.0 N MONOCYTE # (test code = MO#) 0.9 K/mm3 0.0-0.6 H EOSINOPHIL # (test code = EO#) 0.2 K/MM3 0.0-0.7 N BASOPHIL # (test code = BA#) 0.0 K/mm3 0.0-0.2 N - XR CHEST 2 [id number] 14:22:00 FAX: Roula Escobar MD [phone] [place]: St: DIS Name: WYANE HIU [facility] : 1970 Age/S: 49/F [address] [facility] [id number] Loc: [place], [place]: [place] [address] Acct: [id number] Dis Date: Status: DIS IN PHONE #: [phone] Exam Date: 08/11/2019 1417 FAX #: [phone] Reason: Chest Pain EXAMS: CPT CODE: [id number] XR CHEST 2 V 77455 Site ID: [id number] HISTORY: Chest pain FINDINGS: The lungs are clear and normally expanded. The heart and pulmonary vasculature is normal. Osseous structures are unremarkable. IMPRESSION: Negative chest X- ray. Electronically Signed by Levy Adkins on08/11/2019 at 1422 Reported and signed by: Miguel Angel Adkins M.D. CC: Roula Escobar MD Technologist: CHIDI TIRADO Trnscrd Date/Time/By: 08/11/2019 (1422) : By: [email or web address] PAGE 1 Signed Report FAX: Roula Escobar MD [phone] [place]: St: DIS --- Name: WAYNE HUI [facility] : 1970 Age/S: 49/F [address] [facility] Unit #: [id number] Loc: [place], [place]: [place] [address] Acct: [id number] Dis Date: Status: DIS IN PHONE #: [phone] Exam Date: 08/11/2019 [facility] FAX #: [phone] Reason: Chest Pain EXAMS: CPT CODE: [id number] XR CHEST 2 V 15527 <Continued> Orig Print D/T: S: 08/11/2019 (9493) PAGE 2 Signed Report- XR CHEST 2 [id number] 14:22:00 FAX: Roula Escobar MD [phone] [place]: St: PRE Name: WAYNE HUI [facility] : 1970 Age/S: 49/F [address] [facility] [address] [facility] Unit[facility] [id number] Loc: E.ERS2 [place], [place]: [place] [address] Acct: [id number] Dis Date: Status: PRE ER PHONE #: [phone] Exam Date: 08/11/2019 1417 FAX #: [phone] Reason: Chest Pain EXAMS: CPT CODE: [id number] XR CHEST 2 V 71249 Site ID: [id number] HISTORY: Chest pain FINDINGS: The lungs are clear and normally expanded. The heart and pulmonary vasculature is normal. Osseous structures are unremarkable. IMPRESSION: Negative chest X- ray. Electronically Signed by Levy Adkins on08/11/2019 at 1422 Reported and signed by: Miguel Angel Adkins M.D. CC: Roula Escobar MD Technologist: CHIDI TIRADO Trnscrd Date/Time/By: 08/11/2019 (7041) : By: [email or web address] PAGE 1 Signed Report FAX: Roula Escobar MD [phone] [place]: St: PRE --- Name: WAYNE HUI [facility] : 1970 Age/S: 49/F [address] [facility] Unit #: [id number] Loc: [address] [place] [address] [place]: [place] [address] Acct: [id number] Dis Date: Status: PRE ER PHONE #: [phone] Exam Date: 08/11/2019 1417 FAX #: [phone] Reason: Chest Pain EXAMS: CPT CODE: [id number] XR CHEST 2 V 65593 <Continued> Orig Print D/T: S: 08/11/2019 (7817) PAGE 2 Signed Report- CT HEART WO SHANICE Wilson [place] [id number] 18:20:00 [place]: [facility] St: REG Name: WAYNE HUI [facility] : 1970 Age/S: 48/F [address] Unit #: [id number] Loc: [place], [place] [address] Phys: Santosh Donato Jr, MD Acct: [id number] Dis Date: Status: REG CLI PHONE #: [phone] Exam Date: 01/02/2019 1723 FAX #: [phone] Reason: CTDI: DLP: Automated exposure control, iterative reconstruction technique, and/oradjustment of mA and/or kV according to patient's size was utilized fooptimum radiation dose reduction. EXAMS: CPT CODE: [id number] [place] [address] HISTORY: Female, 48 years of age with family history of ischemic heart disease Location code: R16 EXAM: QUANTITATIVE CORONARY ARTERY CALCIUM SCORING(CT HEART WITHOUT IV CONTRAST). COMPARISON: Comparison made with routine CT chest without and with IV contrast performed 02/16/2018 TECHNIQUE: Helical axial images were obtained through the heart without IV contrast. One or more of the following dose reductiontechniques were used: Automated exposure control; adjustment of the mA and/or kV according to the patient size; and/or use of iterative reconstruction technique. COMMENT: Quality of the study is good. Visualized portions of lung yu are clear. No obvious mediastinal or hilar adenopathy or mass. Incidental note made of mild calcified plaque in the aortic arch. Breast prostheses noted. Agatston/Janowitz Coronary artery calcium scoring was calculated as follows: Left main coronary artery: n/a Left anterior descending artery: 0 Left circumflex artery: 0 Right coronary artery: 0 Posterior descending artery: n/a TOTAL: 0 Calcium score: 0 = No identifiable atherosclerotic plaque. 1 to 10 = Minimal plaque burden. 11 to 100 = Mild plaque burden. 101 to 400 = Moderate plaque burden. Greater than 401 = extensive plaque burden. IMPRESSION: Total calcium score is 0. Score is in the 0-25th percentile for patient age and gender. PAGE 1 SignedReport (CONTINUED) [place]: Annamarie: [facility] 1970 Age/S: 48/F [address] Unit #: [id number] Loc: [place] [address] Phys: Santosh Donato Jr, MD Acct: [id number] Dis Date: Status: REG CLI PHONE #: [phone] Exam Date: 01/02/2019 1723 FAX #: [phone] Reason: CTDI: DLP: Automated exposure control, iterative reconstruction technique, and/oradjustment of mA and/or kV according to patient's size was utilized fooptimum radiation dose reduction. EXAMS: CPT CODE: [id number] [place] [address] <Continued> at 1820 Reported and signed by: THERON HONEYCUTT M.D. Facility ACR Accreditation for CT - May 2012 CC: Santosh Donato Jr, MD Technologist: SANDRA JARVISRT(R)() (ARRT) Transcribed Date/Time/By: 01/02/2019 (1819) : By: ReenaCLW Orig Print D/T: S: 01/02/2019 (1822) PAGE 2 Signed Report- CT ABD PELVIS W/[id number] 16:19:00 FAX: Sergei Law MD [phone] [place]: St: [facility] Name: WAYNE HUI [facility] : 1970 Age/S: 46/F [address] [facility] Unit: [id number] Loc: [place], [place]: [place] [address] Acct: [id number] Dis Date: Status: UNK PHONE #: [phone] Exam Date: 06/19/2016 1603 FAX #: [phone] Reason: PAIN S/P ROSA ISELA FUNDOPLICATION EXAMS: CPT CODE: [id number] CT ABD PELVIS W/CONT 98120 CT ABDOMEN AND PELVIS WITH IV CONTRAST AND WITHOUT ORAL CONTRAST HISTORY: PAIN S/P ROSA ISELA FUNDOPLICATION 2 WEEKS AGO COMPARISON: None. IV contrast administration: 100 ml Isovue-300. FINDINGS: Bilateral breast implants. Minimal atelectasis seen in both lung bases. The heart size is normal. Faint 9 mm hypodensity noted in the posterior right hepatic lobe is not well c haracterize. The gallbladder is not visualized either removed or contracted. Spleen, pancreas and adrenal glands are unremarkable. Both kidneys are similar in size, shape and perfusion without evidence of hydronephrosis. Urinary bladder is partially distended withoutwall thickening. The uterus and ovaries not visualized, likely removed. No freeair, free fluid or evidence of a bowel obstruction. Fluid is noted along the GE junction at the expected location the Rosa Isela fundoplication. There is a twisting of the stomach at the GE junction related to the Rosa Isela fundoplication. The stomach distally is distended. There is mild thickening seen in the rectum and sigmoid colon. The colon has been removed. Fluid isseen in the right colon. No small bowel wall thickening. Aorta is normal in caliber. No abdominal or pelvic adenopathy. Mild degenerative changes affect the hips. Bilateral spondylolysis of L5 is noted with grade 2 anterolisthesis of L5 on S1. IMPRESSION: Rosa Isela fundoplication. Small amount of fluid in the region may relate to recent surgery. Thickening of the sigmoid colon and rectum along with fluid within the colon may relate to a infection and diarrhea. 9 mm hypodensity in the posterior right hepatic lobe is not well PAGE 1 Signed Report (CONTINUED) FAX: Sergei Law MD [phone] [place]: St: [facility]-- Name: WAYNE HUI [facility] : 1970 Age/S: 46/F [address] [facility] Unit: [id number] Loc: [place], [place]: [place] [address] Acct: [id number] Dis Date: Status: UN PHONE #: [phone] Exam Date:06/19/2016 1603 FAX #: [phone] Reason: PAIN S/P ROSA ISELA FUNDOPLICATION EXAMS: CPT CODE: [id number] CT ABD PELVIS W/CONT 20427 <Continued> characterized does not appear to be a simple cyst. This may be followed up with an MRI abdomen without and with contrast for further assessment as an outpatient. ElectronicallySigned by Levy Stone on 06/19/2016 at 1487 Reported and signed by: Kiki Stone M.D. CC: Sergei Zaidi MD Technologist: SG SMITH Trnscrd Dt/Tm: 06/19/2016 (9682) [email or web address] Orig Print D/T: S: 06/19/2016 (5330 13.67 774.30 PAGE 2 Signed Report- XR CHEST 1 [id number] 14:56:00 FAX: Sergei Law MD [phone] [place]: St: [facility] Name: [facility] : 1970 Age/S: 46/F [address] [facility] Unit#: [id number] Loc: [place], [place]: [place] [id number] Acct: [id number] Dis Date: Status: [facility] PHONE #: [phone] Exam Date: 06/19/2016 1450 FAX #: [phone] Reason: weakness EXAMS: CPT CODE: [id number] XR CHEST 1 V 60115 CHEST, FRONTAL VIEW HISTORY: weakness COMPARISON: None. FINDINGS: The lungs are clear without consolidation. No pleural effusion or pneumothorax. The heart size is normal. The bones are unremarkable. IMPRESSION: No evidence of acute cardiopulmonary disease. at 7849 Reported and signed by: Kiki Stone M.D. CC: Sergei Zaidi MD Technologist: [employer] [facility] Date/Time/By: 06/19/2016 (7154) : By: [email or web address] PAGE 1 Signed Report FAX: Sergei Law MD [phone] [place]: St: [facility] Name: WAYNE HUI [facility] : 1970 Age/S: 46/F [address] [facility] Unit #: [id number] Loc: [place], [place]: [place] [id number] Acct: [id number] Dis Date: Status: UNK PHONE #: [phone] Exam Date: 06/19/2016 1453 FAX #: [phone] Reason: weakness EXAMS: CPT CODE: [id number] XR CHEST 1 V 29343 <Continued> Orig Print D/T: S: 06/19/2016 (9976) PAGE 2 Signed WovjkiJABEVHBOL1481-91-36 19:43:0011.0[facility] PatyckaAWIJJZSUZ9064-15-01 19:43:0070[facility] KoupugrZGIMVULYB2378-74-67 19:43:004.0[facility] TdshyzbGKHENQKBJ2224-83-33 19:43:90859Avzcckry Charlie NBXHJYXFV4580-69-21 19:43:0030[facility] FamebtgFWWOTURWE7263-92-87 19:43:009.7 [facility] ChfkwssWYFVVSUKP7496-87-56 19:43:0081[facility] HermannCHEMISTRY 2012-07-29 19:43:008[facility] JvczinvAKINPHDLZ1275-94-02 19:43:001.0[facility] YfywgxrDKEXTMCZC3960-93-86 19:43:59356Xhqpyzsn NfwiwmfDNRCQPWWF0885-44-20 19:43:0023[facility] VlfzafsNNPTZNENT5603-85-89 19:43:000.1[facility] Charlie UNNAHXVGU9702-40-07 19:43:000.4[facility] OoauhjtGHEILIASL2352-82-32 19:43:0052 [facility] JvupymeITHOIFKWY8072-33-20 19:43:004.3[facility] HermannCHEMISTRY 2012-07-29 19:43:008.2[facility] WgbnricXTYZLACZD6050-70-57 19:43:0098[facility] YjrddtkDKJHHXMNQ8843-96-76 19:43:001.1[facility] RljbyzmTPDGCSUAB4136-63-11 19:43:000.3[facility] DuvyprdNYCOGZJWE7874-94-51 19:43:003.9[facility] INONTJCCM0258-42-49 19:43:76199Iikonozv RmrscnxSBKEMKIIWW8531-77-60 19:43:0013.2 [facility] RvnnthhZGCYZYTVRY6417-04-27 19:43:78700Pwnrnqwz HermannHEMATOLOGY 2012-07-29 19:43:009.0[facility] MahghbxOZAIZBZAQC4408-28-08 19:43:00 Test Item Value Reference Range Interpretation Comments MCH (test code = MCH) 30.1 pg 27.0-31.0 N [facility] UzuhipfFATDBLZIXD3010-75-61 19:43:0034.1[facility] HermannHEMATOLOGY 2012-07-29 19:43:0088.2[facility] OtzzysiFOVLKDHCNA9899-14-50 19:43:004.56[facility] HcxihieELNOMQZUIM3659-74-84 19:43:0013.7[facility] QehlsbwWOSWHLOLZJ4864-46-98 19:43:0040.2[facility] VsvngpeKELTLEDHFP1020-54-62 19:43:008.1[facility] BDTZXHHEUW2483-50-24 19:43:001+ *ABN*(07/29/2012 14:43:00)[facility] BQYEAWEZMU7572-38-60 19:43:00Normal (07/29/2012 14:43:00)[facility] XIJDQIKGTD9341-05-68 19:43:000.1[facility] XkjhsjdYZPUOAZHDO9699-56-63 19:43:004.1 [facility] HyllalwUFSSXAVZFK7258-13-88 19:43:000.1[facility] HermannHEMATOLOGY 2012-07-29 19:43:000.7[facility] TyhsgdvZQFDLIURGB0800-19-38 19:43:003.1[facility] IjlaekgRXOBIVMRWA3368-78-87 19:43:000.8[facility] RoxnshcECJHTJWQQB2147-13-01 19:43:008.1[facility] PithzhbAPXNLQMCJK2247-89-86 19:43:001.5[facility] Charlie ULOGCOGSOZ9706-44-10 19:43:0038.7[facility] PhgvtysUGYKVZVDZF6434-54-98 19:43:00 50.9[facility] PhtgdxwPWJEUCYFE7442-38-38 19:29:00Negative (07/29/2012 14:29:00) [facility] KwwpdxuBWKCDAWUVW8277-60-15 19:29:00Negative *NA*(07/29/2012 14:29:00) [facility] KgnumceBAKWQXKKTH4631-70-83 19:29:00Negative (07/29/2012 14:29:00) [facility] OneywkqMBTDAOOTGB1801-15-76 19:29:00Negative (07/29/2012 14:29:00) [facility] PogyzafZNDDKVFYSB1632-86-98 19:29:000.2[facility] HermannURINALYSIS 2012-07-29 19:29:00Negative (07/29/2012 14:29:00)[facility] HermannURINALYSIS 2012-07-29 19:29:00 Test Item Value Reference Range Interpretation Comments UA Spec Grav (test code = UA Spec 1.015 1 N Grav) [facility] SarhynmQPGQJGXYNP7786-34-91 19:29:00 Test Item Value Reference Range Interpretation Comments UA pH (test code = UA pH) 7.0 1 5.0-8.0 N [facility] UpbdihdOVNQKHGNQJ7066-57-72 19:29:00Yellow *NA*(07/29/2012 14:29:00) [facility]hmclxpUMCGDYJMWI[facility]-98 19:29:00Clear (07/29/2012 14:29:00)[facility] CampusXfntdhuTQNELBUBBV3257-70-58 19:29:00Negative *NA*(07/29/2012 14:29:00)[facility] CampusNurfbmgIQOGICCJMS8823-94-93 19:29:00Negative (07/29/2012 14:29:00)[facility] CampusQlerpipVNXVYPAWGJ0929-99-51 19:29:00Negative (07/29/2012 14:29:00)[facility] CampusIgfyqgiESWXLYWIPU1706-67-44 19:29:00Few /LPF (07/29/2012 14:29:00)[facility] CampusGhreqeyDUXFLHNUBH5355-16-01 19:29:003[facility] XrupjnzBLVJZXSHKJ7269-94-75 19:29:00Few /LPF (07/29/2012 14:29:00)[facility] CampusGuabxzkDKTYGJRNGN3561-57-59 19:29:000-2 /HPF (07/29/2012 14:29:00)[facility] CampusOnfiugaBRYAKWNGAG5574-63-65 19:29:00Occasional /HPF (07/29/2012 14:29:00)[facility]
[2020-04-09] MEDS ORDERED: FAMOTIDINE 20 MG/2 ML VIAL IV ONE (22:16)
[2020-04-09] MEDS ORDERED: ONDANSETRON 4 MG/2 ML VIAL ONE (22:16)
[2020-04-09 22:43] LABS: Absolute Lymphocytes (CBC) 2.9 K/uL (0.7-4.9); Basophils % 0.4 % (0-1.3); Hematocrit 41.4 % (36.0-45.0); Lymphocytes % 24.4 % (15.3-44.8); MPV 9.8 fL (7.6-11.3); RBC Red Blood Cell Count 4.54 M/uL (3.86-4.86)
[2020-04-09 22:44] LABS: Protime INR 0.87
[2020-04-09 23:10] LABS: ALT/SGPT 33 U/L (12-78); AST/SGOT 24 U/L (15-37); Albumin 4.5 g/dL (3.4-5.0); Alkaline Phosphatase 67 U/L (45-117); BUN Blood Urea Nitrogen 19 mg/dL (7-18); Bicarbonate 26 mmol/L (21-32); Bilirubin Direct < 0.1 mg/dL (0-0.2); Bilirubin Total 0.2 mg/dL (0.2-1.0); Glucose Level 110 mg/dL (74-106); Lipase 209 U/L (73-393); Magnesium 2.2 mg/dL (1.8-2.4); NT PRO-BNP 140 pg/mL (<125); Potassium 3.5 mmol/L (3.5-5.1); Protein, Total 8.5 g/dL (6.4-8.2); Sodium Level 140 mmol/L (136-145); Troponin (Emerg Dept Use Only) < 0.02 ng/mL (0.0-0.045)
--- NOTE | 2020-04-10 03:35 | EDPHYS ---
Physician Documentation [facility] Name: Kim Zimmerman Age: 49 yrs Sex: Female : 1970 Arrival Date: 04/09/2020 Time: 20:48 Bed 8 Private MD: ED Physician Giuliano Shepard HPI: 04/09 22:08 This 49 yrs old Female presents to ER via Ambulatory with complaints of Chest mh7 Pain, Shortness Of Breath. 22:08 The patient or guardian reports chest pain that is located primarily in the substernal mh7 area, epigastric area. Onset: yesterday. The pain. 22:13 The pain radiates to back. Associated signs and symptoms: Pertinent positives: mh7 abdominal pain, shortness of breath, Pertinent negatives: cough, diaphoresis, dizziness, headache, lower extremity pain, lower extremity swelling, nausea, near syncope, palpitations, recent travel, syncope, vomiting. The chest pain is described as dull. Duration: The patient or guardian reports multiple episodes, that are intermittent, that wax and wane, with no pattern. Modifying factors: The symptoms are alleviated by nothing. the symptoms are aggravated by nothing. Severity of pain: At its worst the pain was moderate today, in the emergency department the pain has improved markedly. 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 - Social history:: Smoking status: Patient denies any tobacco usage or history of. ROS: 22:13 Constitutional: Negative for fever, chills, and weight loss, Eyes: Negative for injury, mh7 pain, redness, and discharge, ENT: Negative for injury, pain, and discharge, Neck: Negative for injury, pain, and swelling, : Negative for injury, bleeding, discharge, and swelling, MS/Extremity: Negative for injury and deformity, Skin: Negative for injury, rash, and discoloration, Neuro: Negative for headache, weakness, numbness, tingling, and seizure, Psych: Negative for depression, anxiety, suicide ideation, homicidal ideation, and hallucinations, Allergy/Immunology: Negative for hives, rash, and allergies, Endocrine: Negative for neck swelling, polydipsia, polyuria, polyphagia, and marked weight changes, Hematologic/Lymphatic: Negative for swollen nodes, abnormal bleeding, and unusual bruising. Exam: 22:13 Constitutional: This is a well developed, well nourished patient who is awake, alert, mh7 and in no acute distress. Head/Face: Normocephalic, atraumatic. Eyes: Pupils equal round and reactive to light, extra-ocular motions intact. Lids and lashes normal. Conjunctiva and sclera are non-icteric and not injected. Cornea within normal limits. Periorbital areas with no swelling, redness, or edema. Neck: Trachea midline, no thyromegaly or masses palpated, and no cervical lymphadenopathy. Supple, full range of motion without nuchal rigidity, or vertebral point tenderness. No Meningismus. Chest/axilla: Normal chest wall appearance and motion. Nontender with no deformity. No lesions are appreciated. Cardiovascular: Regular rate and rhythm with a normal S1 and S2. No gallops, murmurs, or rubs. Normal PMI, no JVD. No pulse deficits. Respiratory: Lungs have equal breath sounds bilaterally, clear to auscultation and percussion. No rales, rhonchi or wheezes noted. No increased work of breathing, no retractions or nasal flaring. 22:13 Back: No spinal tenderness. No costovertebral tenderness. Full range of motion. Skin: Warm, dry with normal turgor. Normal color with no rashes, no lesions, and no evidence of cellulitis. MS/ Extremity: Pulses equal, no cyanosis. Neurovascular intact. Full, normal range of motion. Neuro: Awake and alert, GCS 15, oriented to person, place, time, and situation. Cranial nerves II-XII grossly intact. Motor strength 5/5 in all extremities. Sensory grossly intact. Cerebellar exam normal. Normal gait. 22:13 ECG was reviewed by the Attending Physician. 22:13 Abdomen/GI: Inspection: scar(s), are noted in the right upper quadrant, Bowel sounds: normal, in all quadrants, Palpation: moderate abdominal tenderness, in the epigastric area, Rectal exam: the exam is deferred, because of patient request, Indicators: McBurney's point is not tender, Montenegro's sign is negative, Rovsing's sign is negative, Obturator sign is negative, Psoas sign is negative, Liver: no appreciated palpable abnormalities, Hernia: not appreciated. Vital Signs: 20:52 BP 137 / 95; Pulse 74; Resp 15 S; Temp 97.6(TE); Pulse Ox 100% on R/A; Weight 81.65 kg ca1 (R); Height 5 ft. 5 in. (165.10 cm) (R); Pain 8/10; 21:30 BP 139 / 85; Pulse 70; Resp 17; Pulse Ox 98% ; Pain 10/10; rr5 22:30 BP 131 / 70; Pulse 75; Resp 19; Pulse Ox 99% ; rr5 23:00 BP 104 / 55; Pulse 51; Resp 15; Pulse Ox 99% on R/A; rv 23:30 BP 116 / 80; Pulse 71; Resp 15; Pulse Ox 100% on R/A; rv 04/10 00:00 BP 114 / 72; Pulse 51; Resp 15; Pulse Ox 99% on R/A; rv 00:30 BP 104 / 67; Pulse 53; Resp 15; Pulse Ox 96% on R/A; rv 01:50 BP 110 / 62; Pulse 60; Resp 19; Pulse Ox 99% ; rr5 03:00 BP 112 / 63; Pulse 69; Resp 17; Pulse Ox 100% ; rr5 03:45 BP 118 / 75; Pulse 62; Resp 17; Pulse Ox 99% ; rr5 04/09 20:52 Body Mass Index 29.95 (81.65 kg, 165.10 cm) ca1 MDM: 04/09 22:07 Patient medically screened. 7 04/10 03:32 Differential diagnosis: acute myocardial infarction, chest wall pain, costochondritis, mh7 pneumonia, pneumothorax, pulmonary embolus. HEART Score: History: Slightly Suspicious (0), ECG: Non specific repolarization disturbance / LBTB / PM (1), Age: > 45 and < 65 years (1), Risk Factors: No Risk Factors Known (0), Troponin: < or = 1 x Normal Limit (0), Total Score = 2. Data reviewed: vital signs, nurses notes, lab test result(s), cardiac enzymes, CBC, electrolytes, EKG, radiologic studies, CT scan, plain films. Data interpreted: Pulse oximetry: on room air is 99 %. Interpretation: normal. Counseling: I had a detailed discussion with the patient and/or guardian regarding: the historical points, exam findings, and any diagnostic results supporting the discharge/admit diagnosis, lab results, radiology results, the need for outpatient follow up, to return to the emergency department if symptoms worsen or persist or if there are any questions or concerns that arise at home. 04/09 21:46 Order name: Basic Metabolic Panel; Complete Time: 23:50 04/09 21:46 Order name: CBC with Diff; Complete Time: 23:50 04/09 21:46 Order name: LFT's; Complete Time: 23:50 04/09 21:46 Order name: Magnesium; Complete Time: 23:50 04/09 21:46 Order name: NT PRO-BNP; Complete Time: 23:50 rv 04/09 21:46 Order name: PT-INR; Complete Time: 23:50 04/09 21:46 Order name: Troponin (emerg Dept Use Only); Complete Time: 23:50 04/09 21:46 Order name: XRAY Chest (1 view) 04/09 22:33 Order name: Lipase; Complete Time: 23:50 EDMS 04/09 23:52 Order name: CT Chest For PE Angio [facility] 04/09 23:52 Order name: CT Abd/Pelvis - IV Contrast Only 04/10 00:49 Order name: Troponin (emerg Dept Use Only); Complete Time: 02:51 rv 04/09 21:05 Order name: EKG; Complete Time: 21:06 [facility] 04/09 21:05 Order name: EKG - Nurse/Tech; Complete Time: 21:05 ca1 04/09 21:46 Order name: IV Saline Lock; Complete Time: 22:32 rv 04/09 21:46 Order name: Labs collected and sent; Complete Time: 22:32 04/09 21:46 Order name: O2 Per Protocol; Complete Time: 22:32 04/09 21:46 Order name: O2 Sat Monitoring; Complete Time: 22:32 rv EC/26 22:13 Rate is 71 beats/min. Rhythm is regular. QRS [place] is Normal. LA interval is normal. QRS mh7 interval is normal. QT interval is normal. No Q waves. T waves are Normal. No ST changes noted. Clinical impression: NSR w/ Non-specific ST/T Changes and LVH. Administered Medications: 22:31 Drug: Pepcid 20 mg Route: IVP; Site: right wrist; rr5 23:30 Follow up: Response: No adverse reaction rr5 04/10 00:49 Not Given (Patient Refused): Zofran (Ondansetron) 4 mg IVP once; over 2 minutes rr5 Disposition: 04/10/20 03:34 Discharged to Home. Impression: Chest pain, unspecified. - Condition is Stable. - Discharge Instructions: Nonspecific Chest Pain, Ouys-hb-Neuv. - Medication Reconciliation Form, Thank You Letter, Antibiotic Education, Prescription Opioid Use form. - Follow up: Private Physician; When: 1 - 2 days; Reason: Worsening of condition, Recheck today's complaints, Re-evaluation by your physician. - Problem is an ongoing problem. - Symptoms have improved. Signatures: Dispatcher [employer] [facility] Kirby Li RN RN rv Cisco Ruiz RN RN rr5 Bebe Tello RN RN ca1 Giuliano Shepard MD MD 7 Corrections: (The following items were deleted from the chart) 04/09 22:32 22:06 LIPASE+C.LAB.BRZ ordered. [facility] 04/10 03:47 03:34 04/10/2020 03:34 Discharged to Home. Impression: Chest pain, unspecified. rr5 Condition is Stable. Forms are Medication Reconciliation Form, Thank You Letter, Antibiotic Education, Prescription Opioid Use. Follow up: Private Physician; When: 1 - 2 days; Reason: Worsening of condition, Recheck today's complaints, Re-evaluation by your physician. Problem is an ongoing problem. Symptoms have improved. 7
--- NOTE | 2020-04-10 03:35 | ER ---
Nurse's Notes [facility] Name: Kim Zimmerman Age: 49 yrs Sex: Female : 1970 Arrival Date: 04/09/2020 Time: 20:48 Bed 8 Private MD: Diagnosis: Chest pain, unspecified Presentation: 04/09 20:52 Chief complaint: Patient states: Mid-sternal chest pain started a few hours ago, ca1 radiates to the back, to the epigastric area. Intermittent, described as dull pain. Reports SOB and Lightheadedness with CP. Denies cough. Denies fever. I swabbed yesterday for COVID but does not have results yet. I was swabbed because Sunday I had chills and sore throat for a week. Coronavirus screen: Surgical mask placed on patient. Patient moved to private room, placed in contact and droplet isolation with eye protection until further assessment. Patient denies a cough. Patient reports shortness of breath or difficulty breathing. Patient denies measured and/or subjective temperature greater than 100.4F prior to today's visit. Patient denies travel on a cruise ship or to a country the [facility] currently lists as an affected area. Patient denies contact with known and/or suspected case of COVID-19. Ebola Screen: Patient negative for fever greater than or equal to 101.5 degrees Fahrenheit, and additional compatible Ebola Virus Disease symptoms Patient denies exposure to infectious person. Patient denies travel to an Ebola-affected area in the 21 days before illness onset. No symptoms or risks identified at this time. Initial Sepsis Screen: Does the patient meet any 2 criteria? No. Patient's initial sepsis screen is negative. Does the patient have a suspected source of infection? No. Patient's initial sepsis screen is negative. Risk Assessment: Do you want to hurt yourself or someone else? Patient reports no desire to harm self or others. Onset of symptoms was April 09, 2020. 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 - Social history:: Smoking status: Patient denies any tobacco usage or history of. Screenin:32 Abuse screen: Denies threats or abuse. Denies injuries from another. Nutritional rr5 screening: No deficits noted. Tuberculosis screening: No symptoms or risk factors identified. Fall Risk IV access (20 points). Total Tai Fall Scale indicates No Risk (0-24 pts). Assessment: 21:30 General: Appears in no apparent distress. uncomfortable, Behavior is calm, cooperative, rr5 appropriate for age. 21:30 Pain: Complains of pain in chest Pain radiates to back and epigastric area and right rr5 upper quadrant Pain currently is 10 out of 10 on a pain scale. Quality of pain is described as dull, Pain began gradually, Is intermittent. Neuro: Level of Consciousness is awake, alert, obeys commands, Oriented to person, place, time, situation. Cardiovascular: Reports chest pain, Capillary refill < 3 seconds Patient's skin is warm and dry. Respiratory: Airway is patent Respiratory effort is even, unlabored, Respiratory pattern is regular, symmetrical. GI: Abdomen is round non-distended, Reports upper abdominal pain, Patient currently denies nausea, vomiting. : No signs and/or symptoms were reported regarding the genitourinary system. EENT: No signs and/or symptoms were reported regarding the EENT system. Derm: Skin is intact, is healthy with good turgor, Skin temperature is warm. Musculoskeletal: Reports pain in back. 22:30 Reassessment: Patient appears in no apparent distress at this time. Patient is alert, rr5 oriented x 3, equal unlabored respirations, skin warm/dry/pink. awaiting for results. 23:30 Reassessment: Patient appears in no apparent distress at this time. Patient is alert, rr5 oriented x 3, equal unlabored respirations, skin warm/dry/pink. Patient states feeling better. Patient states symptoms have improved. 04/10 00:20 Reassessment: Patient appears in no apparent distress at this time. reassess by ED rr5 provider for CT scan. 01:27 Reassessment: Patient appears in no apparent distress at this time. Patient is alert, rr5 oriented x 3, equal unlabored respirations, skin warm/dry/pink. came back from CT scan, repeat troponin extracted and sent. 02:20 Reassessment: Patient appears in no apparent distress at this time. No changes from rr5 previously documented assessment. Reassessment: awaiting for results of CT scan. 03:47 Reassessment: Patient appears in no apparent distress at this time. Patient and/or rr5 family updated on plan of care and expected duration. Pain level reassessed. Patient is alert, oriented x 3, equal unlabored respirations, skin warm/dry/pink. discharge instruction given and explained without complaints made. Patient states feeling better. Patient states symptoms have improved. Vital Signs: 04/09 20:52 BP 137 / 95; Pulse 74; Resp 15 S; Temp 97.6(TE); Pulse Ox 100% on R/A; Weight 81.65 kg ca1 (R); Height 5 ft. 5 in. (165.10 cm) (R); Pain 8/10; 21:30 BP 139 / 85; Pulse 70; Resp 17; Pulse Ox 98% ; Pain 10/10; rr5 22:30 BP 131 / 70; Pulse 75; Resp 19; Pulse Ox 99% ; rr5 23:00 BP 104 / 55; Pulse 51; Resp 15; Pulse Ox 99% on R/A; rv 23:30 BP 116 / 80; Pulse 71; Resp 15; Pulse Ox 100% on R/A; rv 04/10 00:00 BP 114 / 72; Pulse 51; Resp 15; Pulse Ox 99% on R/A; rv 00:30 BP 104 / 67; Pulse 53; Resp 15; Pulse Ox 96% on R/A; rv 01:50 BP 110 / 62; Pulse 60; Resp 19; Pulse Ox 99% ; rr5 03:00 BP 112 / 63; Pulse 69; Resp 17; Pulse Ox 100% ; rr5 03:45 BP 118 / 75; Pulse 62; Resp 17; Pulse Ox 99% ; rr5 04/09 20:52 Body Mass Index 29.95 (81.65 kg, 165.10 cm) ca1 ED Course: 04/09 20:48 Patient arrived in ED. ds1 20:55 Triage completed. ca1 20:56 Arm band placed on right wrist. ca1 21:04 Kirby Li RN is Primary Nurse. rv 21:06 Giuliano Shepard MD is Attending Physician. mh7 21:30 Patient has correct armband on for positive identification. Placed in gown. Bed in low rr5 position. Call light in reach. Side rails up X2. monitor car operator on. Pulse ox on. NIBP on. 22:32 Inserted saline lock: 20 gauge in right wrist, using aseptic technique. Blood collected.rr5 22:38 XRAY Chest (1 view) In Process Unspecified. EDMS 22:42 Primary Nurse role handed off by Kirby Li RN rr5 22:42 Cisco Ruiz, WING is Primary Nurse. rr5 22:42 No provider procedures requiring assistance completed. Patient maintains SpO2 rr5 saturation greater than 95% on room air. 04/10 01:27 Repeat lab(s) drawn. by wi, sent to lab. rr5 01:33 CT Chest For PE Angio In Process Unspecified. EDMS 01:33 CT Abd/Pelvis - IV Contrast Only In Process Unspecified. EDMS 03:45 IV discontinued, intact, bleeding controlled, No redness/swelling at site. Pressure rr5 dressing applied. Administered Medications: 04/09 22:31 Drug: Pepcid 20 mg Route: IVP; Site: right wrist; rr5 23:30 Follow up: Response: No adverse reaction rr5 04/10 00:49 Not Given (Patient Refused): Zofran (Ondansetron) 4 mg IVP once; over 2 minutes rr5 Outcome: 03:34 Discharge ordered by . 7 03:45 Discharged to home ambulatory. rr5 03:45 Condition: stable 03:45 Discharge instructions given to patient, Instructed on discharge instructions, follow up and referral plans. Demonstrated understanding of instructions, follow-up care. 03:47 Patient left the ED. rr5 Signatures: Dispatcher [employer] ED[facility] Rizwana Martinez ds1 Kirby Li RN RN rv Cisco Ruiz RN RN rr5 Bebe Tello RN RN ca1 Giuliano Shepard MD MD [facility]
[2020-04-10 04:20] VITALS: BP 118/75; O2SAT 99
[2020-04-10 05:54] VITALS: TEMP 97.6
--- NOTE | 2020-04-10 10:54 | RAD REPORT ---
EXAM DESCRIPTION: RAD - Chest Single View - 04/09/2020 10:38 pm CLINICAL HISTORY: CHEST PAIN Chest pain. COMPARISON: CHEST PA AND LAT 2 VIEW dated 05/20/2014; CHEST SINGLE VIEW dated 02/06/2014; CHEST SINGLE VIEW dated 11/14/2013; CHEST SINGLE VIEW dated 11/13/2013; Chest For Pe Angio dated 04/10/2020 FINDINGS: Portable technique limits examination quality. The lungs are grossly clear. The heart is normal in size. No displaced fractures. IMPRESSION: No acute intrathoracic process suspected.
--- NOTE | 2020-04-10 20:32 | RAD REPORT ---
EXAM DESCRIPTION: CT abdomen and pelvis with IV contrast CLINICAL HISTORY: 49-year-old female with midsternal chest pain that began a few hours ago which radiates to the back TECHNIQUE: Axial CT imaging of the abdomen and pelvis was performed following the administration of intravenous contrast. Oral contrast was not administered for this examination. Sagittal and coronal reconstruct ed images were then performed. The CT study is performed according to ALARA (as low as reasonably a chievable) or ALARA/IMAGE GENTLY, with automatic adjustment of mA and/or kV according to patient size . Performed on: 04/10/2020 at 1:14 AM. COMPARISON: No prior studies were available for comparison. FINDINGS: Lung bases: The lung bases are clear. There is partial visualization of bilateral breast p rostheses. Liver: The liver is normal in size and configuration. There is a subcentimeter focal area of decrease d attenuation in the posterior right hepatic lobe which is new small to characterize. This could repr esent a small cyst or hemangioma. Liver attenuation is within normal limits. Spleen: The spleen is normal is size, configuration and attenuation. Gallbladder and bile duct: The gallbladder is not well visualized and is likely surgically absent. There is no biliary ductal dilatation. Pancreas: The pancreas is grossly normal in size and configuration. Adrenal Glands: The adrenal glands are normal in size and configuration. Kidneys: The kidneys are normal in size and configuration. There is no evidence of hydronephrosis. Th ere is no evidence of nephrolithiasis. No definite solid or cystic renal mass lesions are identified. Stomach: The stomach is grossly normal. There is no definite hiatal hernia. Bowel: The bowel gas pattern is non specific and non obstructive. Appendix: The appendix is not well visualized and may be surgically absent. Free air: There is no evidence of free air. Free fluid: There is no evidence of free fluid. Vasculature: The aorta is normal in caliber and contour. The inferior vena cava is grossly unremarkab le. Lymphadenopathy: No pathologic lymphadenopathy is identified. Bladder: The bladder is well distended and smooth in contour. Reproductive: The uterus is surgically absent. Bones: There is grade 1 anterolisthesis of L5 relative to S1 and there are pars defects bilaterally a t the L5 level. There are degenerative changes of the facet joints as well. Soft tissues: No focal soft tissue abnormalities are identified. IMPRESSION: 1. No evidence of acute intra-abdominal or intrapelvic pathology. 2. CT findings suggest prior cholecystectomy, appendectomy and hysterectomy. 3. Grade 1 anterolisthesis of L5 relative to S1 with bilateral pars defects at L5. 4. Suspect incidental subcentimeter cyst or hemangioma in the posterior right hepatic lobe. Electronically signed by: Kenyatta Singh DO 04/10/2020 1:49 AM CDT Due to temporary technical issues with the PACS/Fluency reporting system, reports are being signed by the in house radiologist without review as a courtesy to ensure prompt reporting. The interpreting r adiologist is fully responsible for the content of the report.
--- NOTE | 2020-04-10 20:34 | RAD REPORT ---
EXAM DESCRIPTION: CTA CHEST WITH CONTRAST CLINICAL HISTORY: CHEST PAIN COMPARISON: None. TECHNIQUE: Axial CT imaging of the thorax utilizing intravenous contrast. Reformatted multiplanar im ages obtained including reconstructed maximum intensity projection images. This exam was performed according to our departmental dose-optimization program which includes automa beryl exposure control, adjustment of the mA and/or kV according to patient size and/or use of iterativ e reconstruction technique FINDINGS: PULMONARY ARTERIES: Normal caliber main pulmonary artery. No filling defect within the ce ntral or peripheral pulmonary arteries. Complete peripheral pulmonary artery evaluation is limited du e to motion as well as streak artifact from the strongly opacified superior vena cava. HEART/GREAT VESSELS: Heart is normal in size. Normal caliber thoracic aorta. MEDIASTINUM/SHASHA: No adenopathy. Normal central airways. Normal esophagus. LUNGS/PLEURA: Lungs are clear. No pneumothorax. No pleural fluid. There is a 2 mm calcified granuloma within the right upper lobe. CHEST WALL/SOFT TISSUES: Benign disc calcifications at T9-10. Motion artifact limits evaluation of t he sternum. Bilateral breast implants are present without rupture. Unremarkable thyroid. No axillary adenopathy. UPPER ABDOMEN: Mild fatty liver infiltration. Gallbladder has been resected. Normal spleen, pancreas , adrenal glands, kidneys. Small hiatal hernia. IMPRESSION: 1. No evidence of pulmonary embolism. No acute cardiopulmonary finding. 2. Small hiatal hernia. 3. Mild fatty liver infiltration. Electronically signed by: Zaina Gamez DO 04/10/2020 1:41 AM CDT Due to temporary technical issues with the PACS/Fluency reporting system, reports are being signed by the in house radiologist without review as a courtesy to ensure prompt reporting. The interpreting r adiologist is fully responsible for the content of the report.
== END 2020-04-10 03:47 | disposition home or self-care (01) ==
LOC: ER 20:46
DX: R07.9 Chest pain, unspecified (principal); E78.00 Pure hypercholesterolemia, unspecified; R73.03 Prediabetes; Z88.5 Allergy status to narcotic agent
CPT/HCPCS: 36415; 71045; 71275; 74177; 80048; 80076; 83690; 83735; 83880; 84484; 85025; 85610; 93005; 96374; 99285; J2405; Q9967

== ENCOUNTER 2021-11-15 23:05 | Emergency (ER) | payer OTHER, SELFPAY ==
--- OUTSIDE RECORDS SUMMARY | 2021-11-15 23:09 | XMS REPORT | Continuity of Care Document ---
:1970 Author Organization [facility] t Address [address] [place] [address] Care Team Providers Name Role Phone Alysha King Attending Clinician Unavailable UNDEFINED Admitting Clinician Unavailable Nidhi King Admitting Clinician Unavailable Physician, Primary or Family Admitting Clinician Unavailabl e Payers Payer Name Policy Type Policy Number Effective Date Expiration Date S ource Problems This patient has no known problems. Allergies, Adverse Reactions, Alerts Allergy Allergy Status Severity Reaction(s) Onset Inactive Treating Comm ents Source Name Type Date Date Clinician morphine DA Active MO HCA 6-12 Clear 00:00: Martinez 00 [facility] morphine DA Active MO SHORTNESS OF HC A BREATH 6-12 Clear 00:00: Martinez [facility] morphine DA Active U 2018-10 H[facility] 0-28 [place] 00:00: d [facility] morphine DA Active U RASH 2018-10 [facility] 0-28 [place] 00:00: d 00 [facility] morphine DA Active U 2016-0 [facility] 9-05 [place] 00:00: d 00 [facility] morphine DA Active SV [facility] 5-14 [place] 00:00: d 00 [facility] morphine DA Active SV ANXXIOUS 0 [facility] 5-14 [place] 00:00: d 00 [facility] Medications This patient has no known medications. Procedures This patient has no known procedures. Encounters Start End Encounter Admission Attending Care Care Encounter Source Date/Time Date/Time Type Type Clinicians Facility Department ID 2020-03-26 Inpatient HCAMN NIKITA [id number] [facility] 12:09:00 [id number] [facility] 2020-03-26 2020-03-27 Inpatient EM [facility], HCAMN MAS [id number] [facility] 14:12:00 19:14:[id number] [place] [address] 2020-03-26 2020-03-26 Outpatient Fernando, HCACL LABO [id number] [facility] 16:04:00 16:04:[id number] [place] [address] 2020-03-26 2020-03-26 Outpatient Fernando, DREACL LABO [id number] [facility] 16:04:00 16:04:[id number] [place] [address] Results Test Description Test Time Test Comments [...] code = CA) 8.6 mg/dl 8.0-10.5 N [id number] 13:58:00 Test Item Value Reference Range Interpretation Comments LIPASE (test code = LIP) 138 Units/L 65.0-230.0 N HCG SERUM [id number] 13:58:00 Test Item Value Reference Range Interpretation Comments HCG SERUM QUAL (test code = HCGQL) NEGATIVE NEGATIVE [id number] 13:58:00 Test Item Value Reference Range Interpretation Comments TROPONIN-I (test <0.02 NG/ML 0.00-0.06 N REFERENCE R TIMOTHY code = TROPI) TROPONIN I HEA LTHY INDIVIDUALS: < 0.06 ng/mL R/O ISCHE NEHEMIAS: 0.07 - 0.60 ng/ mL CUT-OFF RANGE F OR AMI: 0.60 - 1.5 ng/m L [id number] 13:58:00 Test Item Value Reference Range Interpretation Comments ALCOHOL (test code 0.00 gm/dL 0.00-0.00 N ETHYL ALC OHOL VALUES - = ALC) INTERPRETATION: 0.050 GM/DL - NOT INT OXICATED 0.100 GM/DL - INTOXICATED 0.3 50-0.450 GM/DL - SEVEREL Y INTOXICATED 0.5 50 GM/DL- FATAL INTOXICAT ION BASIC METABOLIC [id number] 13:51:00 Test Item Value Reference Range Interpretation [...] code = CA) 8.6 mg/dl 8.0-10.5 N [id number] 13:51:00 Test Item Value Reference Range Interpretation Comments LIPASE (test code = LIP) 138 Units/L 65.0-230.0 N HCG SERUM [id number] 13:51:00 Test Item Value Reference Range Interpretation Comments HCG SERUM QUAL (test code = HCGQL) NEGATIVE [id number] 13:51:00 Test Item Value Reference Range Interpretation Comments TROPONIN-I (test <0.02 NG/ML 0.00-0.06 N REFERENCE R TIMOTHY code = TROPI) TROPONIN I HEA LTHY INDIVIDUALS: < 0.06 ng/mL R/O ISCHE NEHEMIAS: 0.07 - 0.60 ng/ mL CUT-OFF RANGE F OR AMI: 0.60 - 1.5 ng/m L [id number] 13:51:00 Test Item Value Reference Range Interpretation Comments ALCOHOL (test code 0.00 gm/dL 0.00-0.00 N ETHYL ALC OHOL VALUES - = ALC) INTERPRETATION: 0.050 GM/DL - NOT INT OXICATED 0.100 GM/DL - INTOXICATED 0.3 50-0.450 GM/DL - SEVEREL Y INTOXICATED 0.5 50 GM/DL- FATAL INTOXICAT ION BASIC METABOLIC [id number] 13:38:00 Test Item Value Reference Range Interpretation [...] CALCIUM (test code = CA) mg/dl 8.0-10.5 [id number] 13:38:00 Test Item Value Reference Range Interpretation Comments LIPASE (test code = LIP) Units/L 65.0-230.0 HCG SERUM [id number] 13:38:00 Test Item Value Reference Range Interpretation Comments HCG SERUM QUAL (test code = HCGQL) NEGATIVE [id number] 13:38:00 Test Item Value Reference Range Interpretation Comments TROPONIN-I (test code = TROPI) NG/ML 0.00-0.06 [id number] 13:38:00 Test Item Value Reference Range Interpretation Comments ALCOHOL (test code = ALC) gm/dL 0.00-0.00 PROTHROMBIN [id number] 13:25:00 Test Item Value Reference Range Interpretation Comments PROTHROMBIN TIME 11.6 SECONDS 9.9-12.8 N PATIENT (test code = PTP) INTERNATIONAL NORMAL 1.0 0.89-1.14 N THE INR IS TO BE USED RATIO (test code = ONLY FOR MONITORING INR) ORAL ANTICOAGULANTTH ERAPY. THE FOLLOWING A RE SUGGESTED RANGE S [facility] LEGE OF CHEST PHYSICIANS:DEEPTHI CATION INR VALUEPROPHYLAXI S OF VENOUS THROMBOS IS (ORTHOPEDIC ADELIA AUBREY) 2.0 - 3.0PROP HYLAXIS OF VENOUS THROM BOSIS (OTHER THAN HIG H-RISK SURGERY) 2.0 - 3.0TRE ATMENT OF DEEP VEIN THROMBOSIS OR PULMONARY EMBOL ISM 2.0 - 3.0PREV ENTION OF SYSTEMIC EMB OLISM TISSUE HEART VA LVES 2.0 - 3.0 AC [place] MYOCARDIAL INFA RCTION (TO PREVENT SYSTEMIC EMBOLI [...] .5 Is patient on anticoagulants? NTHROMBOPLASTIN TIME [id number] 13:25:00 Test Item Value Reference Range Interpretation Comments THROMBOPLASTIN TIME 29.80 SECONDS 25.86-36.07 N [place] d Lab PARTIAL (test code = Therape utic Range - PTT) APTT of 55.8-85 .4 secondscorrelat es with plasma heparin concentration o f 0.2-0.4 u/mL Ne w range effective - Is patient on anticoagulants? NDRUGS OF ABUSE SCREEN [id number] 13:23:00 Test Item Value Reference Range Interpretation [...] [place]) concentrati on: 300 ng/mL CBC W/AUTO [id number] 13:22:00 Test Item Value Reference Range Interpretation [...] 0.0-0.2 N UA RFLX MICR CULT IF [id number] 13:22:00 Test Item Value Reference Range Interpretation [...] Description: CLEAN CATCHUA RFLX MICR CULT IF [id number] 13:17:00 Test Item Value Reference Range Interpretation [...] Indication for culture: Dysuria/FrequencySpecimen Description: CLEAN CATCH- XR CHEST 1 [id number] 12:45:00 FAX: Laurie Lambert MD [phone] [place]: [address] St: PRE Name: WAYNE HUI [facility] : 1970 Age/S: 49/F [address] [facility] Unit#: [id number] Loc: [address] Phys: [place] [address] Acct: [id number] Dis Date: Status: PRE ER PHONE #: [phone] Exam Date: 03/26/2020 1225 FAX #: [phone] Reason: weakness EXAMS: CPT CODE: [id number] XR CHEST 1 V 95046 EXAMINATION: - XR CHEST 1 V. LOCATION: S17. HISTORY: Weakness. COMPARISON: Chest x-ray 08/11/19. FINDINGS: Examination is limited due to portable technique. Cardiac silhouette/Mediastinal contour: Within normal limits. Atherosclerotic calcification of aortic arch. Lungs: No focal consolidation. No large pleural effusion. Osseous Structures: Mild degenerative changes affect thoracic spine. Additional Findings: Bilateral breast prosthesis. IMPRESSION: No focal consolidation. at 1244 Reported and signed by: Antione Pressley M.D. CC: Laurie Lambert MD Technologist: RASHAD Chowdhuryrd Date/Time/By: 03/26/2020 (6265) : By: [email or web address] PAGE 1 Signed Report FAX: Laurie Lambert MD [phone] [place]: St: PRE -- Name: WAYNE HUI [facility] : 1970 Age/S: 49/F [address] [employer] Unit #: [id number] Loc: [address] Phys: [place] [address] Acct: [id number] Dis Date: Status: PRE ER PHONE #: [phone] Exam Date: 03/26/2020 1225 FAX #: [phone] Reason: weakness EXAMS: CPT CODE: [id number] XR CHEST 1 V 14631 <Continued> Orig Print D/T: S: 03/26/2020 (5997) PAGE 2 Signed Report- CT HEAD/BRAIN W/O [id number] 12:45:00 FAX: Laurie Lambert MD [phone] [place]: St: PRE Name: WAYNE HUI [facility] : 1970 Age/S: 49/F [address] [facility] Unit: [id number] Loc: [address] Phys: [place] [address] Acct: [id number] Dis Date: Status: PRE ER PHONE #: [phone] Exam Date: 03/26/2020 1230 FAX #: [phone] Reason: head injury, dizziness EXAMS: CPT CODE: [id number] CT HEAD/BRAIN W/O CONT 35671 CLINICAL HISTORY: Head injury, dizziness . CT [...] acute appearing intracranial abnormality. Location: U19 at 1247 Reported and signed by: Mike Bucio M.D CC: Laurie Lambert MD Technologist: CHATA DAN Trnscrd Dt/Tm: 03/26/2020 (3634) [email or web address] Orig Print D/T: S: 03/26/2020 (6026 PAGE 1 Signed Report- CT HEAD/BRAIN W/O CONT 2020-03-26 12:45:00 FAX: Laurie Lambert MD [phone] [place]: St: DIS Name: WAYNE HUI [facility] : 1970 Age/S: 49/F [address] [facility] Unit: [id number] Loc: [address] [place] [address] Phys: [place] [address] Acct: [id number] Dis Date: 03/27/2020 Status: DIS IN PHONE #: [phone] Exam Date: 03/26/2020 1230 FAX #: [phone] Reason: head injury, dizziness EXAMS: CPT CODE: [id number] CT HEAD/BRAIN W/O CONT 92648 CLINICAL HISTORY: Head injury, dizziness . CT [...] M.D CC: Laurie Lambert MD Technologist: CHATA Troy Dt/Tm: 03/26/2020 (6408) [email or web address] Orig Print D/T: S: 03/26/2020 (1089 PAGE 1 Signed Report- XR CHEST 1 [id number] 12:45:00 FAX: Laurie Lambert MD [phone] [place]: St: DIS Name: WAYNE HUI [facility] : 1970 Age/S: 49/F [address] [facility] Unit#: [id number] Loc: [address] [place] [address] [place]: [place] [address] Acct: [id number] Dis Date: [id number] Status: DIS IN PHONE #: [phone] Exam Date: 03/26/2020 1225 FAX #: [phone] Reason: weakness EXAMS: CPT CODE: [id number] XR CHEST 1 V 29905 EXAMINATION: - XR CHEST 1 V. LOCATION: S17. HISTORY: Weakness. COMPARISON: Chest x-ray 08/11/19. FINDINGS: Examination is limited due to portable technique. Cardiac silhouette/Mediastinal contour: Within normal limits. Atherosclerotic calcification of aortic arch. Lungs: No focal consolidation. No large pleural effusion. Osseous Structures: Mild degenerative changes affect thoracic spine. Additional Findings: Bilateral breast prosthesis. IMPRESSION: No focal consolidation. at 5917 Reported and signed by: Antione Pressley M.D. CC: Laurie Lambert MD Technologist: RASHAD Troy Date/Time/By: 03/26/2020 (6446) : By: Jose [email or web address] PAGE 1 Signed Report FAX: Laurie Lambert MD [phone] [place]: St: DIS -- Name: WAYNE HUI [facility] : 1970 Age/S: 49/F [address] [facility] Unit #: [id number] Loc: [address] [place], [place]: [place] [address] Acct: [id number] Dis Date: [id number] Status: DIS IN PHONE #: [phone] Exam Date: 03/26/2020 1225 FAX #: [phone] Reason: weakness EXAMS: CPT CODE: [id number] XR CHEST 1 V 31990 <Continued> Orig Print D/T: S: 03/26/2020 (8563) PAGE 2 Signed Report- XR C-SPINE 2-3 [id number] 13:35:00 FAX: Jaclyn Baez MD [phone] [place]: St: ADM FAX: Dottie Burnett MD [phone] Name: WAYNE HUI [facility] : 1970 Age/S: 49/F [address] [facility] Unit #: [id number] Loc: [address] [place], [place]: [place] [address] Acct: [id number] Dis Date: Status: ADM IN PHONE #: [phone] Exam Date: 08/13/2019 1320 FAX #: [phone] Reason: left arm pain and numbness EXAMS: CPT CODE: [id number] XR C-SPINE 2-3 VIEWS 01385 Site ID: [id number] INDICATION: Left arm pain and numbness FINDINGS: Normal cervical lordosis. No fracture or prevertebral soft tissue swelling. Minimal C5-C6disc height loss with ventral endplate spondylosis. Cervical uncovertebral and facet joints appear well- maintained. IMPRESSION: Minimal C5-C6 disc height loss and ventral endplate spondylosis [id number] Reported and signed by: Miguel Angel Adkins M.D. CC: Jaclyn Moseley MD; Dottie Ashby MD Technologist: DAVID Huizar Date/Time/By: 08/13/2019 (2036) : By: [email or web address] PAGE 1 Signed Report FAX: Jaclyn Baez MD [phone] [place]: St: ADM FAX: Dottie Burnett MD [phone] Name: WAYNE HUI [facility] : 1970 Age/S: 49/F [address] [facility] Unit #: [id number] Loc: [address] [place] [address] Phys: Dottie Ashby MD77591 Acct: [id number] Dis Date: Status: ADM IN PHONE #: [phone] Exam Date: 08/13/2019 1320 FAX #: [phone] Reason: left arm pain and numbness EXAMS: CPT CODE: [id number] XR C-SPINE 2-3 VIEWS 61685 <Continued> Orig Print D/T: S: 08/13/2019 (2885) PAGE 2 Signed Report- XR C-SPINE 2-3 [id number] 13:35:00 FAX: Jaclyn Baez MD [phone] [place]: St: DIS FAX: Dottie Burnett MD [phone] Name: WAYNE HUI [facility] : 1970 Age/S: 49/F [address] [facility] Unit #: [id number] Loc: [place], [place]: [place] [address] Acct: [id number] Dis Date: Status: DIS IN PHONE #: [phone] Exam Date: 08/13/2019 1320 FAX #: [phone] Reason: left arm pain and numbness EXAMS: CPT CODE: [id number] XR C-SPINE 2-3 VIEWS 41027 Site ID: [id number] INDICATION: Left arm pain and numbness FINDINGS: Normal cervical lordosis. No fracture or prevertebral soft tissue swelling. Minimal C5-C6disc height loss with ventral endplate spondylosis. Cervical uncovertebral and facet joints appear well- maintained. IMPRESSION: Minimal C5-C6 disc height loss and ventral endplate spondylosis [id number] Reported and signed by: Miguel Angel Adkins M.D. CC: Jaclyn Moseley MD; Dottie Ashby MD Technologist: DAVID Huizar Date/Time/By: 08/13/2019 (5758) : By: [email or web address] PAGE 1 Signed Report FAX: Jaclyn Baez MD [phone] [place]: St: DIS FAX: Dottie Burnett MD [phone] Name: WAYNE HUI [facility] : 1970 Age/S: 49/F [address] [facility] Unit #: [id number] Loc: [place], [place] Phys: Dottie Ashby [id number] Acct: [id number] Dis Date: Status: DIS IN PHONE #: [phone] Exam Date: 08/13/2019 1320 FAX #: [phone] Reason: left arm pain and numbness EXAMS: CPT CODE: [id number] XR C-SPINE 2-3 VIEWS 74067 <Continued> Orig Print D/T: S: 08/13/2019 (2111) PAGE 2 Signed ReportLIPID PROFILE (CORONARY RISK)2019-08-13 08:47:00 Test Item Value Reference Range Interpretation Comments TRIGLYCERIDES (test code = TRIG) 99 mg/dl 40.0-150.0 N CHOLESTEROL (test code = CHOL) 213 mg/dl 0.0-200.0 H CHOLESTEROL/HDL RATIO (test code = 4.0 RATIO CHOLHDL) HDL CHOLESTEROL (test code = HDL) 53 mg/dl 30.0-60.0 N LIPOPROTEIN LDL (test code = LDL) 152 mg/dl 70-130 H THYROID STIMULATING [id number] 08:47:00 Test Item Value Reference Range Interpretation Comments THYROID STIMULATING 1.81 IU/ML 0.47-5.01 N Result i s in HORMONE (test code = Interna tional TSH) Units/millilite r [id number] 08:45:00 Test Item Value Reference Range Interpretation Comments HGBA1C% (test code = HGBA1C%) 6.5 %A1C 4.8-6.0 H ESTIMATED AVERAGE GLUCOSE (test 140 MG/DL code = EAG) [id number] 00:01:00 Test Item Value Reference Range Interpretation Comments TROPONIN-I (test <0.02 NG/ML 0.00-0.06 N REFERENCE R TIMOTHY code = TROPI) TROPONIN I HEA LTHY INDIVIDUALS: < 0.06 ng/mL R/O ISCHE NEHEMIAS: 0.07 - 0.60 ng/ mL CUT-OFF RANGE F OR AMI: 0.60 - 1.5 ng/m L [id number] 20:06:00 Test Item Value Reference Range Interpretation Comments TROPONIN-I (test <0.02 NG/ML 0.00-0.06 N REFERENCE R TIMOTHY code = TROPI) TROPONIN I HEA LTHY INDIVIDUALS: < 0.06 ng/mL R/O ISCHE NEHEMIAS: 0.07 - 0.60 ng/ mL CUT-OFF RANGE F OR AMI: 0.60 - 1.5 ng/m L - CT HEAD/BRAIN W/O [id number] 18:24:00 FAX: Roula Escobar MD [phone] [place]: St: ADM Name: WAYNE HUI [facility] : 1970 Age/S: 49/F [address] [facility] Unit: [id number] Loc: [place], [place]: [place] [address] Acct: [id number] Dis Date: Status: ADM I N PHONE #: [phone] Exam Date: 08/11/2019 1742 FAX #: [phone] Reason: LEFT CHEST PAIN, LEFT ARM PAIN/LEFT ARM NUMBNES EXAMS: CPT CODE: [id number] CT HEAD/BRAIN W/O CONT 08166 CLINICAL HISTORY: Left chest pain left arm [...] M.D. CC: Roula Escobar MD Technologist: TIKA Troy Dt/Tm: 08/11/2019 (1823) Raissa Orig Print D/T: S: 08/11/2019(7 PAGE 1 Signed Report- CT HEAD/BRAIN W/O [id number] 18:24:00 FAX: Roula Escobar MD [phone] [place]: St: DIS Name: WAYNE HUI [facility] : 1970 Age/S: 49/F [address] [facility] Unit: [id number] Loc: [place], [place]: [place] [address] Acct: [id number] Dis Date: Status: DIS I N PHONE #: [phone] Exam Date: 08/11/2019 1742 FAX #: [phone] Reason: LEFT CHEST PAIN, LEFT ARM PAIN/LEFT ARM NUMBNES EXAMS: CPT CODE: [id number] CT HEAD/BRAIN W/O CONT 56369 CLINICAL HISTORY: Left chest pain left arm [...] Bucio M.D.CC: Roula Escobar MD Technologist: TIKA MAHONEY Trnscrd Dt/Tm: 08/11/2019 (1823) t.ANA ROSA.RCM Orig Print D/T: S: 08/11/2019 (1827 PAGE 1 Signed ReportBASIC METABOLIC [id number] 15:10:00 Test Item Value Reference Range Interpretation [...] 8.0-10.5 N Specimen comments: .HEPATIC FUNCTION PANEL [id number] 15:10:00 Test Item Value Reference Range Interpretation [...] 50.0-136.0 N code = ALKP) Specimen comments: .[id number] 15:10:00 Test Item Value Reference Range Interpretation Comments LIPASE (test code = LIP) 220 Units/L 65.0-230.0 N Specimen comments: .B-TYPE NATRIURETIC [id number] 15:10:00 Test Item Value Reference Range Interpretation Comments B-TYPE NATRIURETIC PEPTIDE (test code PG/ML 5-100 = BNP) Specimen comments: .[id number] 15:10:00 Test Item Value Reference Range Interpretation Comments CKMB (test code = 1.2 NG/ML 0.5-5.0 N DISREGARD CKMB INDEX CKMBT) CALCULATION WHE NEVER THE CKMBT ISREPORTE D <0.5 Specimen comments: .[id number] 15:10:00 Test Item Value Reference Range Interpretation Comments TROPONIN-I (test <0.02 NG/ML 0.00-0.06 N REFERENCE R TIMOTHY code = TROPI) TROPONIN I HEA LTHY INDIVIDUALS: < 0.06 ng/mL R/O ISCHE NEHEMIAS: 0.07 - 0.60 ng/ mL CUT-OFF RANGE F OR AMI: 0.60 - 1.5 ng/m L Specimen comments: .BASIC METABOLIC [id number] 15:10:00 Test Item Value Reference Range Interpretation [...] 8.0-10.5 N Specimen comments: .HEPATIC FUNCTION PANEL [id number] 15:10:00 Test Item Value Reference Range Interpretation [...] 50.0-136.0 N code = ALKP) Specimen comments: .[id number] 15:10:00 Test Item Value Reference Range Interpretation Comments LIPASE (test code = LIP) 220 Units/L 65.0-230.0 N Specimen comments: .B-TYPE NATRIURETIC [id number] 15:10:00 Test Item Value Reference Range Interpretation Comments B-TYPE NATRIURETIC PEPTIDE (test 60.7 PG/ML 5-100 N code = BNP) Specimen comments: .[id number] 15:10:00 Test Item Value Reference Range Interpretation Comments CKMB (test code = 1.2 NG/ML 0.5-5.0 N DISREGARD CKMB INDEX CKMBT) CALCULATION WHE NEVER THE CKMBT ISREPORTE D <0.5 Specimen comments: .[id number] 15:10:00 Test Item Value Reference Range Interpretation Comments TROPONIN-I (test <0.02 NG/ML 0.00-0.06 N REFERENCE R TIMOTHY code = TROPI) TROPONIN I HEA LTHY INDIVIDUALS: < 0.06 ng/mL R/O ISCHE NEHEMIAS: 0.07 - 0.60 ng/ mL CUT-OFF RANGE F OR AMI: 0.60 - 1.5 ng/m L Specimen comments: .URINALYSIS [id number] 15:09:00 Test Item Value Reference Range Interpretation [...] Specimen comments: Clean CatchDRUGS OF ABUSE SCREEN [id number] 15:07:00 Test Item Value Reference Range Interpretation [...] on: 300 ng/mL Specimen comments: Clean CatchURINALYSIS [id number] 15:07:00 Test Item Value Reference Range Interpretation [...] = NONE BACU) Specimen comments: Clean CatchPROTHROMBIN [id number] 14:52:00 Test Item Value Reference Range Interpretation Comments PROTHROMBIN TIME 10.9 SECONDS 9.9-12.8 N PATIENT (test code = PTP) INTERNATIONAL NORMAL 0.9 0.89-1.14 N THE INR IS TO BE USED RATIO (test code = ONLY FOR MONITORING INR) ORAL ANTICOAGULANTTH ERAPY. THE FOLLOWING A RE SUGGESTED RANGE S [facility] LEGE OF CHEST PHYSICIANS:DEEPTHI CATION INR VALUEPROPHYLAXI S OF VENOUS THROMBOS IS (ORTHOPEDIC ADELIA AUBREY) 2.0 - 3.0PROP HYLAXIS OF VENOUS THROM BOSIS (OTHER THAN HIG H-RISK SURGERY) 2.0 - 3.0TRE ATMENT OF DEEP VEIN THROMBOSIS OR PULMONARY EMBOL ISM 2.0 - 3.0PREV ENTION OF SYSTEMIC EMB OLISM TISSUE HEART VA LVES 2.0 - 3.0 AC [place] MYOCARDIAL INFA RCTION (TO PREVENT SYSTEMIC EMBOLI [...] d Lab PARTIAL (test code = Therape uti Range - PTT) APTT of 55.8-85 .4 secondscorrelat es with plasma heparin concentration o f 0.2-0.4 u/mL Ne w range effective - Specimen comments: .Is patient on anticoagulants? [id number] 14:52:00 Test Item Value Reference Range Interpretation Comments D-DIMER/FSP (test <200 ng/mL 200.0-230.0 L Pe r production operations manager code = DDIMER) recommendatio n, the CUT [...] comments: .Is patient on anticoagulants? NTROPONIN I [id number] 14:48:00 Test Item Value Reference Range Interpretation [...] changes in trop onin levelscharacter istic of SC. CBC W/AUTO [id number] 14:45:00 Test Item Value Reference Range Interpretation [...] K/mm3 0.0-0.2 N - XR CHEST 2 [id number] 14:22:00 FAX: Roula Escobar MD [phone] [place]: St: PRE Name: WAYNE HUI [facility] : 1970 Age/S: 49/F [address] [facility] Unit#: [id number] Loc: [address] Phys: [place] [address] Acct: [id number] Dis Date: Status: PRE ER PHONE #: [phone] Exam Date: 08/11/2019 1417 FAX #: [phone] Reason: Chest Pain EXAMS: CPT CODE: [id number] XR CHEST 2 V 53195 Site ID: [id number] HISTORY: Chest pain FINDINGS: The lungs are clear and normally expanded. The heart and pulmonary vasculature is normal. Osseous structures are unremarkable. IMPRESSION: Negative chest X- ray. Electronically Signed by Levy Adkins on08/11/2019 at 1422 Reported and signed by: Miguel Angel Adkins M.D. CC: Roula Escobar MD Technologist: CHIDI TIRADO [facility] Date/Time/By: 08/11/2019 (6256) : By: [email or web address] PAGE 1 Signed Report FAX: Roula Escobar MD [phone] [place]: St: PRE --- Name: WAYNE HUI [facility] : 1970 Age/S: 49/F [address] [facility] Unit #: [id number] Loc: [address] Phys: [place] [address] Acct: [id number] Dis Date: Status: PRE ER PHONE #: [phone] Exam Date: 08/11/2019 1417 FAX #: [phone] Reason: Chest Pain EXAMS: CPT CODE: [id number] XR CHEST 2 V 64089 <Continued> Orig Print D/T: S: 08/11/2019 (7233) PAGE 2 Signed Report- XR CHEST 2 [id number] 14:22:00 FAX: Roula Escobar MD [phone] [place]: St: DIS Name: WAYNE HUI [facility] : 1970 Age/S: 49/F [address] [employer] Unit#: [id number] Loc: [place], [place]: [place] [address] Acct: [id number] Dis Date: Status: DIS IN PHONE #: [phone] Exam Date: 08/11/2019 141 FAX #: [phone] Reason: Chest Pain EXAMS: CPT CODE: [id number] XR CHEST 2 V 87471 Site ID: [id number] HISTORY: Chest pain FINDINGS: The lungs are clear and normally expanded. The heart and pulmonary vasculature is normal. Osseous structures are unremarkable. IMPRESSION: Negative chest X- ray. Electronically Signed by Levy Adkins on08/11/2019 at 1422 Reported and signed by: Miguel Angel Adkins M.D. CC: Roula Escobar MD Technologist: CHIDI TIRADO Trnnmrd Date/Time/By: 08/11/2019 (1422) : By: [email or web address] PAGE 1 Signed Report FAX: Roula Escobar MD [phone] [place]: St: DIS --- Name: WAYNE HUI [facility] : 1970 Age/S: 49/[address] [facility] Unit #: [id number] Loc: [place], [place]: [place] [id number] Acct: [id number] Dis Date: Status: DIS IN PHONE #: [phone] Exam Date: 08/11/2019 1415 FAX #: [phone] Reason: Chest Pain EXAMS: CPT CODE: [id number] XR CHEST 2 V 80157 <Continued> Orig Print D/T: S: 08/11/2019 (5217) PAGE 2 Signed Report- CT HEART ZAID Wilson [place] [id number] 18:20:00 Harbinger: [facility] St: REG [facility] 1970 Age/S: 48/F [address] [facility] Unit #: [id number] Loc: [place], [place] [address] Phys: Santosh Donato Jr, MD Acct: [id number] Dis Date: Status: REG CLI PHONE #: [phone] Exam Date: 01/02/2019 1723 FAX #: [phone] Reason: CTDI: DLP: Automated exposure control, iterative reconstruction technique, and/oradjustment of mA and/or kV according to patient's size was utilized fooptimum radiation dose reduction. EXAMS: CPT CODE: [id number] [place] [address] HISTORY: Female, 48 years of age with [...] age and gender. PAGE 1 SignedReport (CONTINUED) Harbinger: [facility]: [facility] 1970 Age/S: 48/F [address] [facility] [address] Unit #: [id number] Loc: [place] [address] Phys: Santosh Donato Jr, MD Acct: [id number] Dis Date: Status: REG CLI PHONE #: [phone] Exam Date: 01/02/2019 1723 FAX #: [phone] Reason: CTDI: DLP: Automated exposure control, iterative reconstruction technique, and/oradjustment of mA and/or kV according to patient's size was utilized fooptimum radiation dose reduction. EXAMS: CPT CODE: [id number] [place] [address] <Continued> at 1820 Reported and signed by: THERON HONEYCUTT M.D. Facility ACR Accreditation for CT - May 2012 CC: Santosh Donato Jr, MD Technologist: SANDRA JARVISRT(Sheeba)() (ARRT) Transcribed Date/Time/By: 01/02/2019 (1819) : By: Farheen Orig Print D/T: S: 01/02/2019 (335) PAGE 2 Signed Report- CT ABD PELVIS W/[id number] 16:19:00 FAX: Sergei Law MD [phone] Harbinger: St: [facility] Name: WAYNE HUI [facility] : 1970 Age/S: 46/F [address] [facility] Unit: [id number] Loc: [place], [place]: [place] [id number] Acct: [id number] Dis Date: Status: [facility] PHONE #: [phone] Exam Date: 06/19/2016 1603 FAX #: [phone] Reason: PAIN S/P ROSA ISELA FUNDOPLICATION EXAMS: CPT CODE: [id number] CT ABD PELVIS W/CONT [address] CT ABDOMEN AND PELVIS WITH IV CONTRAST [...] Signed Report (CONTINUED) FAX: Sergei Law MD [phone] Harbinger: St: [facility]-- Name: WAYNE HUI [facility] : 1970 Age/S: 46/F [address] [facility] [facility] Unit: [id number] Loc: [place], [place]: [place] [address] Acct: [id number] Dis Date: Status: [facility] PHONE #: [phone] Exam Date:06/19/2016 1603 FAX #: [phone] Reason: PAIN S/P ROSA ISELA FUNDOPLICATION EXAMS: CPT CODE: [id number] CT ABD PELVIS W/CONT [address]349 <Continued> characterized does not appear to be a simple cyst. This may be followed up with an MRI abdomen without and with contrast for further assessment as an outpatient. ElectronicallySigned by Levy Stone on 06/19/2016 at 7102 Reported and signed by: Kiki Stone M.D. CC: Sergei Zaidi MD Technologist: SG SMITH Trnscrd Dt/Tm: 06/19/2016 (1619) [id number] Orig Print D/T: S: 06/19/2016 (1622 13.67 774.30 PAGE 2 Signed Report- XR CHEST 1 [id number] 14:56:00 FAX: Sergei Law MD [phone] Harbinger: St: [facility] Name: WAYNE HUI [facility] : 1970 Age/S: 46/F [address] Unit#: [id number] Loc: [place], [place]: [place] [address] Acct: [id number] Dis Date: Status: UNK PHONE #: [phone] Exam Date: 06/19/2016 1450 FAX #: [phone] Reason: weakness EXAMS: CPT CODE: [id number] XR CHEST 1 V 91265 CHEST, FRONTAL VIEW HISTORY: weakness COMPARISON: None. FINDINGS: The lungs are clear without consolidation. No pleural effusion or pneumothorax. The heart size is normal. The bones are unremarkable. IMPRESSION: No evidence of acute cardiopulmonary disease. at 1456 Reported and signed by: Kiki Stone M.D. CC: Sergei Zaidi MD Technologist: XOCHILT TRAMMELL [facility] Date/Time/By: 06/19/2016 (4465) : By: [email or web address] PAGE 1 Signed Report FAX: Sergei Law MD [phone] Harbinger: St: [facility] Name: MILI HUIELA [facility] : 1970 Age/S: 46/F [address] Unit #: [id number] Loc: UN[place], [place]: [place] [address] Acct: [id number] Dis Date: Status: UNK PHONE #: [phone] Exam Date: 06/19/2016 1450 FAX #: [phone] Reason: weakness EXAMS: CPT CODE: [id number] XR CHEST 1 V 40280 <Continued> Orig Print D/T: S: 06/19/2016 (3785) PAGE 2 Signed Report
--- NOTE | 2021-11-15 23:27 | ER ---
Nurse's Notes [facility] Name: Kim Zimmerman Age: 51 yrs Sex: Female : 1970 Arrival Date: 11/15/2021 Time: 23:07 Bed Waiting Private MD: Diagnosis: Presentation: 11/15 23:19 Chief complaint: Patient states: I was cleaning my rental, we were painting. I was ld1 using all kinds of different transportation maintenance specialist, lysol, commet, fabuloso, bleach, etc. I closed all the windows - didn't realize how strong the chemicals were and now I can't get the smell of bleach out of my nose. Coronavirus screen: At this time, the client does not indicate any symptoms associated with coronavirus-19. Ebola Screen: No symptoms or risks identified at this time. Initial Sepsis Screen: Does the patient meet any 2 criteria? No. Patient's initial sepsis screen is negative. Does the patient have a suspected source of infection? No. Patient's initial sepsis screen is negative. Risk Assessment: Do you want to hurt yourself or someone else? Patient reports no desire to harm self or others. Onset of symptoms was November 15, 2021. 23:19 Method Of Arrival: Ambulatory ld1 23:19 Acuity: EARLENE 4 ld1 Historical: - Allergies: 23:19 Morphine; ld1 - Home Meds: 23:19 simvastatin 10 mg Oral tab 1 tab nightly [Active]; ld1 - PMHx: 23:19 boarderline diab; Kidney stones; High Cholesterol; ld1 - PSHx: 23:19 Cholecystectomy; hysterectomy; Appendectomy; ld1 - Immunization history:: Adult Immunizations up to date, Client reports receiving the 2nd dose of the Covid vaccine, moderna. - Social history:: Smoking status: Patient denies any tobacco usage or history of. Patient/guardian denies using alcohol. Vital Signs: 23:19 BP 131 / 84; Pulse 66; Resp 18; Temp 98.2(O); Pulse Ox 98% on R/A; Weight 81.65 kg; ld1 Height 5 ft. 5 in. (165.10 cm); Pain 0/10; 23:19 Body Mass Index 29.95 (81.65 kg, 165.10 cm) ld1 ED Course: 23:07 Patient arrived in ED. lisa 23:22 Triage completed. ld1 Administered Medications: No medications were administered Outcome: 23:27 Patient left the ED. ld1 Signatures: Mayra Romano RN RN ld1 Betty Molina
[2021-11-15 23:34] VITALS: BP 131/84; TEMP 98.2; O2SAT 98
== END 2021-11-15 23:27 | disposition left against medical advice (07) ==
LOC: ER 23:05
DX: Z53.21 Procedure and treatment not carried out due to patient leaving prior to being seen by health care provider (principal)
CPT/HCPCS: 99281